=== PATIENT | male | born 1995 | race Caucasian/White ===

== ENCOUNTER 2016-06-03 16:38 | Observation (INO) | payer OTHER ==
[~2016-06-03] VITALS: Ht 188 cm; Wt 94.2 kg
[2016-06-03] MEDS ORDERED: SODIUM CHLORIDE 0.9% 1000ML 1,000 ML IV STA (17:08)
[2016-06-03 17:41] LABS: BASO % 0.6 %; BASO ABS # 0.05 K/uL (0-0.2); COMPLETE YES; EOS % 0.2 %; HEMATOCRIT 46.6 % (42-52); IG% 0.1 %; LYMPH ABS # 2.33 K/uL (1.2-3.4); MEAN CELL VOLUME 82.9 fL (80-100); MEAN CORPUSCULAR HEMOGLOBIN 29.2 pg (25-34); MEAN CORPUSCULAR HGB CONC 35.2 g/dl (32-36); MEAN PLATELET VOLUME 9.9 fL (7.4-10.4); MONO % 11.8 %; NEUT % 59.3 %; PLATELET COUNT 321 K/uL (130-400); RED BLOOD COUNT 5.62 M/uL (4.7-6.1); WHITE BLOOD COUNT 8.31 K/uL (4.8-10.8)
--- NOTE | 2016-06-03 17:42 | DIAGNOSTIC IMAGING REPORT ---
CHEST ONE VIEW PORTABLE CLINICAL HISTORY: Overdose dyspnea COMPARISON STUDY: No previous studies for comparison. FINDINGS: The bones soft tissues and hemidiaphragms are normal. The cardiomediastinal silhouette is normal. The lungs are clear. The pulmonary vasculature is normal. IMPRESSION: Negative chest. Electronically signed by: Javier Mann M.D. 06/03/2016 5:41 PM Dictated Date/Time: 06/03/2016 5:41 PM
[2016-06-03 17:50] LABS: INR 1.2 (0.9-1.1); PROTHROMBIN TIME (PATIENT) 12.7 SECONDS (9.0-12.0)
--- NOTE | 2016-06-03 17:55 | DIAGNOSTIC IMAGING REPORT ---
HEAD CT NONCONTRAST CT DOSE: 741.55 mGycm HISTORY: Mental status change AMS TECHNIQUE: Multiaxial CT images of the head were performed without the use of intravenous contrast. Comparison: None. Findings: The paranasal sinuses and mastoid air cells are clear. The calvarium and skull base are intact. The ventricles and sulci are within normal limits. There is no mass, hematoma, midline shift, or acute infarct. Impression: No acute intracranial abnormality. Electronically signed by: Javier Mann M.D. 06/03/2016 5:53 PM Dictated Date/Time: 06/03/2016 5:52 PM
[2016-06-03 18:02] LABS: ALT/SGPT 30 U/L (12-78); BLOOD UREA NITROGEN 10 mg/dl (7-18); BUN/CREATININE RATIO 10.5 (10-20); C-REACTIVE PROTEIN < 0.29 mg/dl (0-0.29); CALCIUM 9.5 mg/dl (8.5-10.1); CARBON DIOXIDE 25 mmol/L (21-32); CHLORIDE 104 mmol/L (98-107); CREATININE 0.99 mg/dl (0.60-1.40); GLUCOSE 85 mg/dl (70-99); MAGNESIUM 2.5 mg/dl (1.8-2.4); SODIUM 140 mmol/L (136-145)
[2016-06-03 18:09] LABS: ACETAMINOPHEN < 2 ug/ml (10-30)
[2016-06-03 18:11] LABS: ALKALINE PHOSPHATASE 77 U/L (45-117); AST/SGOT 16 U/L (15-37); PHOSPHORUS 3.1 mg/dl (2.5-4.9)
[2016-06-03 18:13] LABS: URINE APPEARANCE CLEAR (CLEAR); URINE BILIRUBIN NEG (NEG); URINE COLOR YELLOW; URINE NITRITE NEG (NEG); URINE SPECIFIC GRAVITY 1.004 (1.000-1.030); UROBILINOGEN NEG (NEG)
[2016-06-03 18:17] LABS: MANUAL MICROSCOPIC REQUIRED? NO; REVIEW REQ? NO
[2016-06-03 18:36] LABS: BENZODIAZEPINE, URINE NEG (NEG); COCAINE,URINE NEG (NEG); PHENCYCLIDINE, URINE NEG (NEG)
[2016-06-03 18:57] LABS: LYME DISEASE AB IGG NEG (NEG); LYME DISEASE AB IGM NEG (NEG)
--- NOTE | 2016-06-03 20:13 | EMERGENCY ROOM VISIT NOTE ---
History First contact with patient: 16:57 Chief Complaint: NEURO SYMPTOMS Stated Complaint: CONFUSSION, STUMBLING, PASSING OUT History of Present Illness The patient is a 21 year old male who presents to the Emergency Room with friends for evaluation of an altered mental status. The friends report that he has been out of it the past few days. He has been slow to respond, takes a long time to eat and is constantly sleeping. Friends report that he found him in the bathroom floor this afternoon, and was slow to wake up. He did have emesis 1. The friend reports that he recently joined the [employer] team, and has classes on Friday and Friday. They are not in full contact at this point. Several friends who are in the room report that they were with him most of the weekend. According to his friends, he had no alcohol consumption or illicit drug use, or no known previous history of the same. At the current time, the patient denies any pain. Review of Systems Review of systems was limited because of altered mental status Past Medical/Surgical History Medical Problems: (1) Altered mental status (2) Medical history unknown Surgical Problems: (1) Surgical history unknown Family History Family history unknown Social History Smoking Status: Never Smoker Alcohol Use: none Drug Use: none Marital Status: single Occupation Status: [employer] student Current/Historical Medications Scheduled Multivitamin (Multivitamin), 1 TAB PO DAILY Allergies Coded Allergies: No Known Allergies (Unverified , 06/03/16) Physical Exam Vital Signs Date Time Temp Pulse Resp B/P Pulse Ox O2 Delivery O2 Flow Rate FiO2 06/03/16 19:30 83 18 151/88 100 Room Air 06/03/16 18:25 77 20 147/85 99 06/03/16 17:35 81 06/03/16 17:21 89 Room Air 06/03/16 16:46 37.1 89 18 122/81 98 Room Air Physical Exam CONSTITUTIONAL: Healthy and well nourished appearing male. He does not appear in any acute distress. The patient is slow to respond to answers. PSYCHIATRIC: Flat affect. He does occasionally smile. HEENT: Normocephalic, atraumatic. Pupils equal, round and reactive. No evidence for epistaxis, hemotympanum, subconjunctival hemorrhage, raccoon's eyes or Stanley sign. NECK: Full active range of motion without discomfort. No JVD or carotid bruits. No nuchal rigidity. RESPIRATORY: Clear to auscultation bilaterally with no wheezing, crackles, rhonchi or stridor. CARDIOVASCULAR: Regular rate and rhythm with no murmurs, rubs or gallops. GASTROINTESTINAL: Bowel sounds present in all quadrants. Abdomen is soft and nontender to palpation. MUSCULOSKELETAL: Full range of motion of all joints without discomfort. INTEGUMENTARY: No rash or other significant dermatologic conditions noted. HEMATOLOGIC: No ecchymosis or petechiae noted. NEUROLOGIC: Cranial nerves II-XII are grossly intact, although the patient has a delayed response when prompted with testing. No focal neurologic deficits appreciated. Medical Decision & Procedures ER Provider Diagnostic Interpretation: My interpretation of an ECG shows a normal sinus rhythm of [address] elevation, T-wave inversion or other conduction abnormalities. CT of the head does not show any intracranial bleed, midline shift or mass effect. Radiologist report is as follows: HEAD CT NONCONTRAST CT DOSE: 741.55 mGycm HISTORY: Mental status change AMS TECHNIQUE: Multiaxial CT images of the head were performed without the use of intravenous contrast. Comparison: None. Findings: The paranasal sinuses and mastoid air cells are clear. The calvarium and skull base are intact. The ventricles and sulci are within normal limits. There is no mass, hematoma, midline shift, or acute infarct. Impression: No acute intracranial abnormality. My interpretation of a portable chest x-ray does not show any pneumothorax, cardiomegaly, widened mediastinum or consolidations. Radiologist report is as follows: CHEST ONE VIEW PORTABLE CLINICAL HISTORY: Overdose dyspnea COMPARISON STUDY: No previous studies for comparison. FINDINGS: The bones soft tissues and hemidiaphragms are normal. The cardiomediastinal silhouette is normal. The lungs are clear. The pulmonary vasculature is normal. IMPRESSION: Negative chest. Laboratory Results 06/03/16 17:24 Red Blood Count 5.62, Mean Corpuscular Volume 82.9, Mean Corpuscular Hemoglobin 29.2, Mean Corpuscular Hemoglobin Concent 35.2, Mean Platelet Volume 9.9, Neutrophils (%) (Auto) 59.3, Lymphocytes (%) (Auto) 28.0, Monocytes (%) (Auto) 11.8, Eosinophils (%) (Auto) 0.2, Basophils (%) (Auto) 0.6, Neutrophils # (Auto ) 4.92, Lymphocytes # (Auto) 2.33, Monocytes # (Auto) 0.98, Eosinophils # (Auto ) 0.02, Basophils # (Auto) 0.05 06/03/16 17:24 Test 06/03/16 17:24 06/03/16 17:40 White Blood Count 8.31 K/uL (4.8-10.8) Red Blood Count 5.62 M/uL (4.7-6.1) Hemoglobin 16.4 g/dL (14.0-18.0) Hematocrit 46.6 % (42-52) Mean Corpuscular Volume 82.9 fL (80-100) Mean Corpuscular Hemoglobin 29.2 pg (25-34) Mean Corpuscular Hemoglobin Concent 35.2 g/dl (32-36) Platelet Count 321 K/uL (130-400) Mean Platelet Volume 9.9 fL (7.4-10.4) Neutrophils (%) (Auto) 59.3 % Lymphocytes (%) (Auto) 28.0 % Monocytes (%) (Auto) 11.8 % Eosinophils (%) (Auto) 0.2 % Basophils (%) (Auto) 0.6 % Neutrophils # (Auto) 4.92 K/uL (1.4-6.5) Lymphocytes # (Auto) 2.33 K/uL (1.2-3.4) Monocytes # (Auto) 0.98 K/uL (0.11-0.59) Eosinophils # (Auto) 0.02 K/uL (0-0.5) Basophils # (Auto) 0.05 K/uL (0-0.2) RDW Standard Deviation 39.8 fL (36.4-46.3) RDW Coefficient of Variation 13.2 % (11.5-14.5) Immature Granulocyte % (Auto) 0.1 % Immature Granulocyte # (Auto) 0.01 K/uL (0.00-0.02) Erythrocyte Sedimentation Rate 10 mm/hr (0-14) Prothrombin Time 12.7 SECONDS (9.0-12.0) Prothromb Time International Ratio 1.2 (0.9-1.1) Activated Partial Thromboplast Time 26.6 SECONDS (21.0-31.0) Partial Thromboplastin Ratio 1.0 Anion Gap 11.0 mmol/L (3-11) Est Creatinine Clear Calc Drug Dose 138.4 ml/min Estimated GFR () 126.5 Estimated GFR (Non- 109.2 BUN/Creatinine Ratio 10.5 (10-20) Osmolality 288 mOsm/kg (280-300) Calcium Level 9.5 mg/dl (8.5-10.1) Phosphorus Level 3.1 mg/dl (2.5-4.9) Magnesium Level 2.5 mg/dl (1.8-2.4) Total Bilirubin 0.8 mg/dl (0.2-1) Direct Bilirubin 0.2 mg/dl (0-0.2) Aspartate Amino Transf (AST/SGOT) 16 U/L (15-37) Alanine Aminotransferase (ALT/SGPT) 30 U/L (12-78) Alkaline Phosphatase 77 U/L (45-117) Total Creatine Kinase 99 U/L (39-308) Troponin I < 0.015 ng/ml (0-0.045) C-Reactive Protein < 0.29 mg/dl (0-0.29) Total Protein 8.7 gm/dl (6.4-8.2) Albumin 4.8 gm/dl (3.4-5.0) Lipase 121 U/L (73-393) Thyroid Stimulating Hormone (TSH) 3.780 uIu/ml (0.300-4.500) Salicylates Level < 1.7 mg/dl (2.8-20) Acetaminophen Level < 2 ug/ml (10-30) Ethyl Alcohol mg/dL < 3.0 mg/dl (0-3) Lyme Disease IgG Antibody NEG (NEG) Lyme Disease IgM Antibody NEG (NEG) Urine Color YELLOW Urine Appearance CLEAR (CLEAR) Urine pH 6.0 (4.5-7.5) Urine Specific [place] 1.004 (1.000-1.030) Urine Protein NEG (NEG) Urine Glucose (UA) NEG (NEG) Urine Ketones NEG (NEG) Urine Occult Blood NEG (NEG) Urine Nitrite NEG (NEG) Urine Bilirubin NEG (NEG) Urine Urobilinogen NEG (NEG) Urine Leukocyte Esterase NEG (NEG) Urine Opiates Screen NEG (NEG) Urine Methadone, Qualitative NEG (NEG) Urine Barbiturates NEG (NEG) Urine Phencyclidine (PCP) Level NEG (NEG) Ur Amphetamine/Methamphetamine NEG (NEG) MDMA (Ecstasy) Screen NEG (NEG) Urine Benzodiazepines Screen NEG (NEG) Urine Cocaine Metabolite NEG (NEG) Urine Marijuana (THC) NEG (NEG) The above labs were reviewed. No gross abnormalities noted. Medications Administered Medications (Trade) Dose Ordered Sig/Robert Route Start Time Stop Time Status Last Admin Dose Admin Sodium Chloride (Nss 1000ml) 1,000 ml @ 999 mls/hr Q1H1M STAT IV 06/03/16 17:08 06/03/16 18:08 DC 06/03/16 17:28 999 MLS/HR ED Course Patient history and physical exam were performed. Nurse's notes were reviewed. Vital signs were reviewed and were normal. The patient does not appear acutely ill or toxic. He does have a delayed response to all questions, but does answer them appropriately. IV access was established, and labs were drawn. ECG and portable chest x-ray were normal. Head CT was also normal. Review of labs shows no leukocytosis, electrolyte abnormality, elevated liver function tests or lipase. Urinalysis is unremarkable, and urine drug screen was also negative. Lyme screen was negative as well. On frequent reassessment, the patient is sleeping. Patient was monitored while in the emergency department with no dysrhythmias noted. The case was also discussed with Dr. Baker, ED attending physician, who suggested hospitalist evaluation. The case was discussed with Dr. Robles, who evaluated the patient. Please see his dictation for further treatment and final disposition. At the time of dictation, an MRI was ordered and pending. Medical Decision Patient presents to the emergency department for an altered mental status for the past 2 days. The only possible history that was elicited from friends is that the patient is in a boxing class. Although a friend reports that it is a no contact class, I question if the patient may have suffered some type of the head injury with the possibility of a concussion. His workup here today is otherwise unremarkable with a normal head CT and labs. Urinalysis and urine drug screen are unremarkable. I also impression a possibility of absence seizures. Impression Primary Impression: Altered mental status Departure Information Referrals No Doctor, Assigned (PCP) Patient Instructions [facility] Problem Qualifiers Primary Impression: Altered mental status Altered mental status type: unspecified Qualified Codes: R41.82 - Altered mental status, unspecified
[2016-06-03] MEDS ORDERED: ONDANSETRON INJ 2 MG/ML 2 ML VIAL IV PRN (20:15)
[2016-06-03] MEDS ORDERED: ACETAMINOPHEN 325 MG TAB PO PRN (20:15)
[2016-06-03] MEDS ORDERED: MULT-506 PO (20:41)
[2016-06-03] MEDS: NSS + 20MEQ KCL 1000ML 1,000 ML IV SCH (21:34)
--- NOTE | 2016-06-03 21:43 | EMERGENCY ROOM VISIT NOTE ---
ED Visit Note First contact with patient: 16:57 Staff note: I have reviewed the Patients chart and have discussed this case with my PA. I generally agree with the ED note and findings.
[2016-06-03] MEDS ORDERED: IV FLUIDS COMPLETED PRN (21:45)
[2016-06-03] MEDS ORDERED: LORAZEPAM 2 MG/ML 1 ML VIAL ONE (22:24)
[2016-06-03] MEDS ORDERED: LORAZEPAM 2 MG/ML 1 ML VIAL IV STA (22:25)
[2016-06-03] MEDS ORDERED: HALOPERIDOL LACTATE 5 MG/ML 1 ML VIAL IM STA (22:41)
[2016-06-03] MEDS ORDERED: LORAZEPAM INJ 1 MG in SYRINGE 0.5 ML IV STA (22:41)
[2016-06-03] MEDS ORDERED: HALOPERIDOL LACTATE 5 MG/ML 1 ML VIAL ONE (22:42)
[2016-06-04] VITALS (7 sets, daily range): BP systolic 116–147; BP diastolic 57–73; PULSE 57–94; TEMP 36.6–37.9; O2SAT 97–98; Ht 188 cm; Wt 94.2 kg
--- NOTE | 2016-06-04 01:57 | History and Physical ---
History & Physical Date & Time of Service: Jun 04, 2016 at 01:44 Chief Complaint: Altered Mental Status Primary Care Physician: [facility] History of Present Illness Source: patient, parent, friend The patient is a 21-year-old male who presents emergency department with friends for assessment regarding altered mental status with a past 48 hours. His friends report that he's been slow to respond, has been taking a long time to eat, as constantly sleeping. They had found him on the bathroom floor this afternoon, and he was slow to wake up. His friends report that he recently joined a [employer] team and reportedly are not in full contact at this point. His friends also reports that he had no alcohol consumption or illicit drug use, and has had no previous history of use. His parents did arrive in the emergency department later on, and reports that he is always been healthy, and has had no similar instances in the past. They report that there is no family history of seizure disorder or any other type of neurologic disorders. Social History Smoking Status: Never Smoker Smokeless Tobacco Use: No Alcohol Use: none Drug Use: none Marital Status: single Occupational Status: [employer] student Multi-Drug Resistant Organisms History of MDRO: No Allergies Coded Allergies: No Known Allergies (Unverified , 06/03/16) Home Medications Scheduled Multivitamin (Multivitamin), 1 TAB PO DAILY Review of Systems The patient's family and friends supplement his review of systems, as he has difficulty doing so. Denies chest pain, palpitations, shortness of breath, cough, lower extremity swelling, vision change, hearing change, sore throat, fevers, chills, sweats, weight change, abdominal pain, pelvic pain, blood in urine or stool, dysuria, urinary frequency or urgency, rash, abnormal bruising or bleeding, imbalance, focal or generalized weakness, numbness or tingling in arms or legs, arthralgias or myalgias, back or neck pain, night sweats, or allergy symptoms. The review of systems is otherwise negative other than for that already noted above, and at least 10 systems have been reviewed. Physical Exam Vital Signs Date Time Temp Pulse Resp B/P Pulse Ox O2 Delivery O2 Flow Rate FiO2 06/04/16 00:05 67 06/03/16 23:20 68 15 121/65 95 Room Air 06/03/16 21:33 67 18 158/87 99 Room Air 06/03/16 20:58 84 06/03/16 19:30 83 18 151/88 100 Room Air 06/03/16 18:25 77 20 147/85 99 06/03/16 17:35 81 06/03/16 17:21 89 Room Air 06/03/16 16:46 37.1 89 18 122/81 98 Room Air The patient is awake, well-developed and adequately nourished, alert and oriented 3, normocephalic and atraumatic, lying in bed and in no acute distress. The patient does because intermittently disoriented and agitated in the emergency department, and then returns to a more oriented but not still especially communicative state. HEENT--PERRL, EOMI, mucous membranes and oropharynx dry. Neck--supple, no JVD or bruits, thyroid normal, trachea midline, no adenopathy. Heart--normal S1 and S2, no extra beats, no murmurs, rubs or gallops. Lungs--clear bilaterally with good air movement, no respiratory distress, no accessory muscle use. Abdomen--normal bowel sounds and soft, nontender and nondistended, no hernias or masses, no organomegaly. Extremities--no cyanosis, clubbing or edema. There are good distal pulses b/l. Dermatologic--normal skin turgor, normal color, warm and dry, no abnormal lymph nodes, no rash. Neurologic--cranial nerves II through XII grossly intact, motor and sensory examination normal. Rheumatologic--normal range of motion, nontender, muscles and joints. Psychiatric--flat affect. Diagnostics Laboratory Results Results Past 24 Hours Test 06/03/16 17:24 06/03/16 17:40 Range/Units White Blood Count 8.31 4.8-10.8 K/uL Red Blood Count 5.62 4.7-6.1 M/uL Hemoglobin 16.4 14.0-18.0 g/dL Hematocrit 46.6 42-52 % Mean Corpuscular Volume 82.9 80-100 fL Mean Corpuscular Hemoglobin 29.2 25-34 pg Mean Corpuscular Hemoglobin Concent 35.2 32-36 g/dl Platelet Count 321 130-400 K/uL Mean Platelet Volume 9.9 7.4-10.4 fL Neutrophils (%) (Auto) 59.3 % Lymphocytes (%) (Auto) 28.0 % Monocytes (%) (Auto) 11.8 % Eosinophils (%) (Auto) 0.2 % Basophils (%) (Auto) 0.6 % Neutrophils # (Auto) 4.92 1.4-6.5 K/uL Lymphocytes # (Auto) 2.33 1.2-3.4 K/uL Monocytes # (Auto) 0.98 0.11-0.59 K/uL Eosinophils # (Auto) 0.02 0-0.5 K/uL Basophils # (Auto) 0.05 0-0.2 K/uL RDW Standard Deviation 39.8 36.4-46.3 fL RDW Coefficient of Variation 13.2 11.5-14.5 % Immature Granulocyte % (Auto) 0.1 % Immature Granulocyte # (Auto) 0.01 0.00-0.02 K/uL Erythrocyte Sedimentation Rate 10 0-14 mm/hr Prothrombin Time 12.7 9.0-12.0 SECONDS Prothromb Time International Ratio 1.2 0.9-1.1 Activated Partial Thromboplast Time 26.6 21.0-31.0 SECONDS Partial Thromboplastin Ratio 1.0 Sodium Level 140 136-145 mmol/L Potassium Level 4.0 3.5-5.1 mmol/L Chloride Level 104 98-107 mmol/L Carbon Dioxide Level 25 21-32 mmol/L Anion Gap 11.0 3-11 mmol/L Blood Urea Nitrogen 10 7-18 mg/dl Creatinine 0.99 0.60-1.40 mg/dl Est Creatinine Clear Calc Drug Dose 138.4 ml/min Estimated GFR () 126.5 Estimated GFR (Non- 109.2 BUN/Creatinine Ratio 10.5 10-20 Random Glucose 85 70-99 mg/dl Osmolality 288 280-300 mOsm/kg Calcium Level 9.5 8.5-10.1 mg/dl Phosphorus Level 3.1 2.5-4.9 mg/dl Magnesium Level 2.5 1.8-2.4 mg/dl Total Bilirubin 0.8 0.2-1 mg/dl Direct Bilirubin 0.2 0-0.2 mg/dl Aspartate Amino Transf (AST/SGOT) 16 15-37 U/L Alanine Aminotransferase (ALT/SGPT) 30 12-78 U/L Alkaline Phosphatase 77 45-117 U/L Total Creatine Kinase 99 39-308 U/L Troponin I < 0.015 0-0.045 ng/ml C-Reactive Protein < 0.29 0-0.29 mg/dl Total Protein 8.7 6.4-8.2 gm/dl Albumin 4.8 3.4-5.0 gm/dl Lipase 121 73-393 U/L Thyroid Stimulating Hormone (TSH) 3.780 0.300-4.500 uIu/ml Salicylates Level < 1.7 2.8-20 mg/dl Acetaminophen Level < 2 10-30 ug/ml Ethyl Alcohol mg/dL < 3.0 0-3 mg/dl Lyme Disease IgG Antibody NEG NEG Lyme Disease IgM Antibody NEG NEG Urine Color YELLOW Urine Appearance CLEAR CLEAR Urine pH 6.0 4.5-7.5 Urine Specific [place] 1.004 1.000-1.030 Urine Protein NEG NEG Urine Glucose (UA) NEG NEG Urine Ketones NEG NEG Urine Occult Blood NEG NEG Urine Nitrite NEG NEG Urine Bilirubin NEG NEG Urine Urobilinogen NEG NEG Urine Leukocyte Esterase NEG NEG Urine Opiates Screen NEG NEG Urine Methadone, Qualitative NEG NEG Urine Barbiturates NEG NEG Urine Phencyclidine (PCP) Level NEG NEG Ur Amphetamine/Methamphetamine NEG NEG MDMA (Ecstasy) Screen NEG NEG Urine Benzodiazepines Screen NEG NEG Urine Cocaine Metabolite NEG NEG Urine Marijuana (THC) NEG NEG Diagnostic Radiology Patient Name: DAVID THOMAS Unit Number: [id number] Dictated: 06/03/161751 Transcribed: 06/03/161751 MS Printed Date/Time: [~ rep prt dt]/[~ rep prt tm] [~ rep ct labl] - [~ rep ct ivnm] [facility] [place] [address] Dictated: 06/03/161751 Transcribed: 06/03/161751 MS Printed Date/Time: [~ rep prt dt]/[~ rep prt tm] [~ rep ct labl] - [~ rep ct ivnm] HEAD CT NONCONTRAST CT DOSE: 741.55 mGycm HISTORY: Mental status change AMS TECHNIQUE: Multiaxial CT images of the head were performed without the use of intravenous contrast. Comparison: None. Findings: The paranasal sinuses and mastoid air cells are clear. The calvarium and skull base are intact. The ventricles and sulci are within normal limits. There is no mass, hematoma, midline shift, or acute infarct. Impression: No acute intracranial abnormality. Electronically signed by: Javier Mann M.D. 06/03/2016 5:53 PM Dictated Date/Time: 06/03/2016 5:52 PM The status of this report is Signed. Draft = Not yet reviewed or approved by Radiologist. Signed = Reviewed and approved by Radiologist. <AttendingPhy></AttendingPhy> <FamilyPhy>No Doctor, Assigned</FamilyPhy> < PrimaryPhy>No Doctor, Assigned</PrimaryPhy> <UnitNumber>[id number]</UnitNumber> <VisitNumber>[id number]</VisitNumber> <PatientName>DAVID THOMAS</ PatientName> <DateOfBirth>1995</DateOfBirth> <Location>[facility]</Location> < ServiceDate>06/03/16</ServiceDate> <MNE>ESINDI</MNE> <OrderingPhy>Wayne Jerry</OrderingPhy> <OrderingPhyMNE>f rep ord dr stephens</OrderingPhyMNE> < DictatingPhyMNE>f rep dict dr stephens</DictatingPhyMNE> <CCListMNE>f rep ct kat</ CCListMNE> <AdmittingPhyMNE>f pt admit dr stephens</AdmittingPhyMNE> <AttendingPhyMNE >f pt attend dr stephens</AttendingPhyMNE> <ConsultingPhyMNE>f pt consult dr stephens</ConsultingPhyMNE> <FamilyPhyMNE>f pt fam dr stephens</FamilyPhyMNE> <OtherPhyMNE>f pt other dr stephens</OtherPhyMNE> < PrimaryPhyMNE>f pt prim care dr stephens</PrimaryPhyMNE> <ReferringPhyMNE>f pt referring dr stephens</ReferringPhyMNE> Patient Name: DAVID THOMAS Unit Number: [id number] Dictated: 06/03/161740 Transcribed: 06/03/161740 MS Printed Date/Time: [~ rep prt dt]/[~ rep prt tm] [~ rep ct labl] - [~ rep ct ivnm] [facility] Radiology Department [place], [place] [id number] Dictated: 06/03/161740 Transcribed: 06/03/161740 MS Printed Date/Time: [~ rep prt dt]/[~ rep prt tm] [~ rep ct labl] - [~ rep ct ivnm] [~ rep ct add3]] CHEST ONE VIEW PORTABLE CLINICAL HISTORY: Overdose dyspnea COMPARISON STUDY: No previous studies for comparison. FINDINGS: The bones soft tissues and hemidiaphragms are normal. The cardiomediastinal silhouette is normal. The lungs are clear. The pulmonary vasculature is normal. IMPRESSION: Negative chest. Electronically signed by: Javier Mann M.D. 06/03/2016 5:41 PM Dictated Date/Time: 06/03/2016 5:41 PM The status of this report is Signed. Draft = Not yet reviewed or approved by Radiologist. Signed = Reviewed and approved by Radiologist. <AttendingPhy></AttendingPhy> <FamilyPhy>No Doctor, Assigned</FamilyPhy> < PrimaryPhy>No Doctor, Assigned</PrimaryPhy> <UnitNumber>[id number]</UnitNumber> <VisitNumber>[id number]</VisitNumber> <PatientName>DAVID THOMAS</ PatientName> <DateOfBirth>1995</DateOfBirth> <Location>[facility]</Location> < ServiceDate>06/03/16</ServiceDate> <MNE>ESINDI</MNE> <OrderingPhy>Wayne Jerry</OrderingPhy> <OrderingPhyMNE>f rep ord dr stephens</OrderingPhyMNE> < DictatingPhyMNE>f rep dict dr stephens</DictatingPhyMNE> <CCListMNE>f rep ct mne</ CCListMNE> <AdmittingPhyMNE>f pt admit dr stephens</AdmittingPhyMNE> <AttendingPhyMNE >f pt attend dr stephens</AttendingPhyMNE> <ConsultingPhyMNE>f pt consult dr stephens</ConsultingPhyMNE> <FamilyPhyMNE>f pt fam dr stephens</FamilyPhyMNE> <OtherPhyMNE>f pt other dr stephens</OtherPhyMNE> < PrimaryPhyMNE>f pt prim care dr stephens</PrimaryPhyMNE> <ReferringPhyMNE>f pt referring dr stephens</ReferringPhyMNE> EKG EKG shows normal sinus rhythm at 85 bpm, with generalized low level ST elevations, with differential including early repolarization, pericarditis or injury. Impression Assessment and Plan Altered mental status--the patient be admitted to the telemetry unit, for frequent neuro checks. His CT of the head was negative, and metabolic workup has been negative. We did attempt to get an MRI of the brain tonight in the emergency department, however, the patient became too agitated and had to be sedated,and this may be reattempted in the morning. I've also ordered an EEG for the morning and a neurology consult. His urine drug screen is negative, Lyme testing is negative and sedimentation rate is normal.. His EKG is most likely that of early repolarization, however, to rule out possibility of pericarditis , a 2-D echocardiogram with Dopplers will be ordered. His cardiac enzymes are negative. His clinical presentation at this time is most consistent with that of a concussion, and would go along with his recent new activity of boxing, although it is reported that he has not had any direct contact to this point in time. He has not had any seizure type activity observed while in emergency department, but EEG will be ordered as noted above. Level of Care Telemetry Advanced Directives Existing Advance Directive: No Existing Living Will: No Existing Power of Mapping Technician: No Resuscitation Status FULL RESUSCITATION VTE Prophylaxis VTE Risk Assessment Done? Y/N: Yes Risk Level: Low Given or contraindicated: SCD's Social Service Consult None Apply
[2016-06-04] MEDS ORDERED: INFLUENZA VIRUS QUAD VACCINE 0.5 ML SYR IM. ONE (08:30)
[2016-06-04] MEDS ORDERED: LORAZEPAM 2 MG/ML 1 ML VIAL IV PRN (08:30)
[2016-06-04] MEDS ORDERED: INFLUENZA ADMINISTRATION CHARGE ONE (08:30)
--- NOTE | 2016-06-04 10:39 | Neurology Consultation ---
Neurology Consultation Date of Consultation: Jun 04, 2016. Attending Physician: Arnulfo Robles M.D. Primary Care Physician: [facility] Reason for Consultation: Consultation for change in mental status History of Present Illness Source: patient, parent, hospital records This is a 21-year-old male who presents to the emergency room and reported altered mental status. Mother reports that he had called her on stating that he wasn't feeling well. He had started boxing training, was doing a little cut carbohydrate diet, and may have been dehydrated. She instructed him to get Gatorade which she did and reportedly felt better on Friday. Parents and roommates both adamantly report that even so he is training for boxing, they are not doing any contact at this time. Parents and patient deny any recent episodes of head injuries or loss of consciousness. Patient denies any recent illnesses or fevers. Mother reports that he had of slight headache this morning, but currently the patient denies any headaches or problems with headaches. Per chart review roommates reportedly noted that he had been off mentally for the last 2 days before presentation. He had been sleeping more than normal. They found him on the floor the bathroom and he was slow to respond. There has not been any seizure-like episodes currently or in the past. No tongue biting or urinary incontinence. No unexplained injuries. Parents deny any history of psychiatric illness including depression and anxiety.Family history of psychiatric illness beyond anxiety. Patient denies any drug use or supplement use. Denies any recent alcohol. Patient denies any feelings of depression or anxiety. Patient denies any hallucinations. Denies any fevers. Patient has never had any episodes like this in the past. 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 Nursing staff this morning reports that he has been agitated and not cooperating with testing such as getting an MRI. Mother reports that he pulled himself out of the MRI and was laughing in an usual manner. CT of the head report and images reviewed by myself and was unremarkable Labs were reviewed. Drug screen was negative. Unremarkable CBC, complete metabolic panel, CRP, ESR, Lyme, TSH, magnesium and phos. I ordered an ammonia level this morning which was also within normal limits. Past Medical/Surgical History Denies any significant medical problems Family History Denies any history for psychiatric disease. Mother reports a relative with MS. No other neurological diseases reported. 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 He has started boxing training but there is no contact. Denies any tobacco, alcohol, or illegal drug use. Smokeless Tobacco Use: No Alcohol Use: none Drug Use: none Marital Status: single Occupation Status: [employer] student Allergies Coded Allergies: No Known Allergies (Unverified , 06/03/16) Current Inpatient Medications Current Inpatient Medications Medications (Trade) Dose Ordered Sig/Robert Route Start Time Stop Time Status Last Admin Dose Admin Potassium Chloride/Sodium Chloride (Nss + 20meq KCl 1000ml) 1,000 ml @ 100 mls/hr Q10H IV 06/03/16 21:30 07/03/16 21:29 06/03/16 21:34 100 MLS/HR Acetaminophen (Tylenol Tab) 650 mg Q4H PRN PO 06/03/16 20:15 07/03/16 20:14 Ondansetron HCl (Zofran Inj) 4 mg Q6H PRN IV 06/03/16 20:15 07/03/16 20:14 Miscellaneous (Iv Fluids Completed) 1 ea PRN PRN N/A 06/03/16 21:45 06/03/17 21:44 Lorazepam (Ativan Inj) 0.5 mg Q4H PRN IV 06/04/16 08:30 07/04/16 08:29 Review of Systems Review of systems Limited due to mental status but negative except for the above reported in history of present illness Physical Exam Vital Signs (Past 24 Hrs): Date Time Temp Pulse Resp B/P Pulse Ox O2 Delivery O2 Flow Rate FiO2 06/04/16 08:09 68 06/04/16 08:00 Room Air 06/04/16 07:40 36.6 94 18 147/73 97 Room Air 06/04/16 04:09 65 06/04/16 03:25 36.6 57 18 121/73 Room Air 06/04/16 00:05 67 06/03/16 23:20 68 15 121/65 95 Room Air 06/03/16 21:33 67 18 158/87 99 Room Air 06/03/16 20:58 84 06/03/16 19:30 83 18 151/88 100 Room Air 06/03/16 18:25 77 20 147/85 99 06/03/16 17:35 81 06/03/16 17:21 89 Room Air 06/03/16 16:46 37.1 89 18 122/81 98 Room Air Gen.: Patient is lethargic/groggy sleeping in bed, in no acute distress. HEENT: Normocephalic /atraumatic, no scleral icterus Heart: Regular rate and rhythm Extremities: No gross deformities or rashes noted Neurological examination: Mental status: Patient is lethargic but oriented x3. Attention and concentration is decreased. Patient is able to give his own history but difficult to obtain. No active hallucinations Speech is fluent without any dysarthria or aphasia noted Cranial nerve: Funduscopic examination was unremarkable. No papilledema. Pupils equally round and reactive to light. Extraocular muscles intact without nystagmus. No facial asymmetry noted. Facial sensation intact. Tongue is midline. Good palatal elevation. Good shoulder shrug bilaterally. Hearing grossly intact to voice. Strength: 5/5 both proximal and distally in all extremities. There is no arm drift. Tone is normal. Sensation: Grossly intact to light touch in all extremities. Deep tendon reflexes: +1 in bilateral biceps, brachioradialis and patellar. Toes were downgoing to plantar stimulation Coordination: Patient had good finger to nose without dysmetria Gait was stable and within normal limits. No ataxia noted. Laboratory Results Past 24 Hours: 06/03/16 17:24 Red Blood Count 5.62, Mean Corpuscular Volume 82.9, Mean Corpuscular Hemoglobin 29.2, Mean Corpuscular Hemoglobin Concent 35.2, Mean Platelet Volume 9.9, Neutrophils (%) (Auto) 59.3, Lymphocytes (%) (Auto) 28.0, Monocytes (%) (Auto) 11.8, Eosinophils (%) (Auto) 0.2, Basophils (%) (Auto) 0.6, Neutrophils # (Auto ) 4.92, Lymphocytes # (Auto) 2.33, Monocytes # (Auto) 0.98, Eosinophils # (Auto ) 0.02, Basophils # (Auto) 0.05 06/03/16 17:24 Test 06/03/16 17:24 06/03/16 17:40 06/04/16 08:50 White Blood Count 8.31 K/uL (4.8-10.8) Red Blood Count 5.62 M/uL (4.7-6.1) Hemoglobin 16.4 g/dL (14.0-18.0) Hematocrit 46.6 % (42-52) Mean Corpuscular Volume 82.9 fL (80-100) Mean Corpuscular Hemoglobin 29.2 pg (25-34) Mean Corpuscular Hemoglobin Concent 35.2 g/dl (32-36) Platelet Count 321 K/uL (130-400) Mean Platelet Volume 9.9 fL (7.4-10.4) Neutrophils (%) (Auto) 59.3 % Lymphocytes (%) (Auto) 28.0 % Monocytes (%) (Auto) 11.8 % Eosinophils (%) (Auto) 0.2 % Basophils (%) (Auto) 0.6 % Neutrophils # (Auto) 4.92 K/uL (1.4-6.5) Lymphocytes # (Auto) 2.33 K/uL (1.2-3.4) Monocytes # (Auto) 0.98 K/uL (0.11-0.59) Eosinophils # (Auto) 0.02 K/uL (0-0.5) Basophils # (Auto) 0.05 K/uL (0-0.2) RDW Standard Deviation 39.8 fL (36.4-46.3) RDW Coefficient of Variation 13.2 % (11.5-14.5) Immature Granulocyte % (Auto) 0.1 % Immature Granulocyte # (Auto) 0.01 K/uL (0.00-0.02) Erythrocyte Sedimentation Rate 10 mm/hr (0-14) Prothrombin Time 12.7 SECONDS (9.0-12.0) Prothromb Time International Ratio 1.2 (0.9-1.1) Activated Partial Thromboplast Time 26.6 SECONDS (21.0-31.0) Partial Thromboplastin Ratio 1.0 Anion Gap 11.0 mmol/L (3-11) Est Creatinine Clear Calc Drug Dose 138.4 ml/min Estimated GFR () 126.5 Estimated GFR (Non- 109.2 BUN/Creatinine Ratio 10.5 (10-20) Osmolality 288 mOsm/kg (280-300) Calcium Level 9.5 mg/dl (8.5-10.1) Phosphorus Level 3.1 mg/dl (2.5-4.9) Magnesium Level 2.5 mg/dl (1.8-2.4) Total Bilirubin 0.8 mg/dl (0.2-1) Direct Bilirubin 0.2 mg/dl (0-0.2) Aspartate Amino Transf (AST/SGOT) 16 U/L (15-37) Alanine Aminotransferase (ALT/SGPT) 30 U/L (12-78) Alkaline Phosphatase 77 U/L (45-117) Total Creatine Kinase 99 U/L (39-308) Troponin I < 0.015 ng/ml (0-0.045) C-Reactive Protein < 0.29 mg/dl (0-0.29) Total Protein 8.7 gm/dl (6.4-8.2) Albumin 4.8 gm/dl (3.4-5.0) Lipase 121 U/L (73-393) Thyroid Stimulating Hormone (TSH) 3.780 uIu/ml (0.300-4.500) Salicylates Level < 1.7 mg/dl (2.8-20) Acetaminophen Level < 2 ug/ml (10-30) Ethyl Alcohol mg/dL < 3.0 mg/dl (0-3) Lyme Disease IgG Antibody NEG (NEG) Lyme Disease IgM Antibody NEG (NEG) Urine Color YELLOW Urine Appearance CLEAR (CLEAR) Urine pH 6.0 (4.5-7.5) Urine Specific [place] 1.004 (1.000-1.030) Urine Protein NEG (NEG) Urine Glucose (UA) NEG (NEG) Urine Ketones NEG (NEG) Urine Occult Blood NEG (NEG) Urine Nitrite NEG (NEG) Urine Bilirubin NEG (NEG) Urine Urobilinogen NEG (NEG) Urine Leukocyte Esterase NEG (NEG) Urine Opiates Screen NEG (NEG) Urine Methadone, Qualitative NEG (NEG) Urine Barbiturates NEG (NEG) Urine Phencyclidine (PCP) Level NEG (NEG) Ur Amphetamine/Methamphetamine NEG (NEG) MDMA (Ecstasy) Screen NEG (NEG) Urine Benzodiazepines Screen NEG (NEG) Urine Cocaine Metabolite NEG (NEG) Urine Marijuana (THC) NEG (NEG) Ammonia 13.0 umol/L (11-32) Imaging As noted above in history of present illness Impression This is a 21-year-old male with a change in mental status. Described as being lethargic, tired, and agitated. There is no history of concussion or head injuries. No episodes suggestive of seizure or stroke. Drug screen is negative and patient denies any drug use. Patient has reportedly been under increased stress and has changed his diet to a low carb diet. Denies any illness or sick symptoms. Overall patient has a nonfocal neurological examination and it is not clear if there is an underlying neurological condition that would explain his change in mental status. Differential diagnosis could include seizure or stroke, but I think this is a low probability. Metabolic derangements as a cause for acute encephalopathy have not been found. Differential diagnosis should also include infectious etiologies including encephalitis or limbic encephalitis, although the patient has not exhibited any fevers or other sick symptoms. Plan Patient needs to get an MRI of his brain with and without contrast to rule out structural etiologies, inflammation, or infection. If agitation continues to be an issue, may need to be done under sedation with anesthesia. We'll attempt to get an EEG today to evaluate for possible seizure etiology. My suspicion for seizure is low. (Tech did attempt to do earlier this morning, but the patient was reportedly agitated at the time) If any concern, signs or symptoms for infection, would do an infectious workup including blood cultures and consideration for lumbar puncture. No additional neurological recommendations at this time. I will follow-up MRI and EEG once done. If there is any concerns or questions, feel free to call/ page me
[2016-06-04] MEDS: NSS + 20MEQ KCL 1000ML 1,000 ML IV SCH ×2 (13:00→17:59)
--- NOTE | 2016-06-04 13:16 | EEG Procedure Note ---
EEG Procedure Note Date of Service Jun 04, 2016. Start / End Times Start Time: 10:38 AM End Time: 10:58 AM Referring Physician Arnulfo Hughes History This is a 21-year-old male who presents with acute encephalopathy. EEG for further evaluation of possible seizure etiology. Home Medication List Scheduled Multivitamin (Multivitamin), 1 TAB PO DAILY Inpatient Medication List Current Inpatient Medications Medications (Trade) Dose Ordered Sig/Robert Route Start Time Stop Time Status Last Admin Dose Admin Potassium Chloride/Sodium Chloride (Nss + 20meq KCl 1000ml) 1,000 ml @ 100 mls/hr Q10H IV 06/03/16 21:30 07/03/16 21:29 06/03/16 21:34 100 MLS/HR Acetaminophen (Tylenol Tab) 650 mg Q4H PRN PO 06/03/16 20:15 07/03/16 20:14 Ondansetron HCl (Zofran Inj) 4 mg Q6H PRN IV 06/03/16 20:15 07/03/16 20:14 Miscellaneous (Iv Fluids Completed) 1 ea PRN PRN N/A 06/03/16 21:45 06/03/17 21:44 Lorazepam (Ativan Inj) 0.5 mg Q4H PRN IV 06/04/16 08:30 07/04/16 08:29 06/04/16 13:08 0.5 MG Description This is a 21 electrode EEG with a single channel dedicated to limited EKG. The electrodes were placed in accordance with the International 10-20 system. Rare to occasional intermittent movement artifact noted. At the start of the recording the patient was in an awake state. Background was well organized and composed of symmetric mixed alpha and beta frequencies. There was a symmetric well-formed moderate amplitude 10-11 Hz posterior dominant rhythm that was reactive to eye opening and closure. Hyperventilation was not done due to mental status. Intermittent photic stimulation at various frequencies produced no abnormalities. Sleep was indicated by vertex waves and symmetric sleep spindles. Interpretation This is a normal awake and asleep routine EEG. There was no electrographic seizures or epileptiform discharges. Clinical Correlation A normal EEG does not rule out epilepsy if there is a strong clinical suspicion.
--- NOTE | 2016-06-04 14:03 | DIAGNOSTIC IMAGING REPORT ---
MRI OF THE BRAIN WITHOUT AND WITH IV CONTRAST CLINICAL HISTORY: Altered mental status. COMPARISON STUDY: Head CT dated 06/03/2016 TECHNIQUE: MRI of the brain was performed from the vertex to the skull base utilizing various T1 and T2 weighted sequences. Following the IV administration of 9.5 mL of Gadavist contrast, additional enhanced images were obtained. FINDINGS: Sagittal T1, axial diffusion, proton density and T2 weighted axial, coronal FLAIR, and pre and post axial T1-weighted images were acquired. These were supplemented with post gadolinium coronal T1 weighted images. No intra or extra-axial mass lesions are visualized. Axial diffusion-weighted images reveal no evidence of acute or subacute infarction. There is no evidence of ventricular dilatation. Proton density T2-weighted and FLAIR images reveal no significant intraparenchymal signal abnormalities. There are no abnormal flow voids. There is no evidence of pathologic enhancement. IMPRESSION: Normal study. Electronically signed by: Antony Waite M.D. 06/04/2016 2:02 PM Dictated Date/Time: 06/04/2016 1:59 PM
--- NOTE | 2016-06-04 15:35 | Psychiatric Progress Notes ---
Psychiatric Progress Note Date of Service Jun 04, 2016. Notes consult requested to help eval patient who was found poorly responsive on the bathroom floor by roommates. Attempted to see patient at this time, but had just received IV ativan and was poorly responsive and unable to participate in interview. Will return in the AM.
--- NOTE | 2016-06-04 19:48 | Progress Note ---
Subjective Subjective Date of Service: Jun 04, 2016. Pt evaluation today including: conversation w/ patient, conversation w/ family , physical exam, chart review, review of studies, conversation w/ ux consultant ( dave) Notes: agitated this am, lethargic Review of Systems Constitutional: No fever ENT: No hearing loss Cardiac: No chest pain Abdomen: No pain Male : No dysuria Neurologic: No memory loss Psychiatric: + problem reported (lethargy) Endo: No fatigue Skin: No rash Physical Exam Vital Signs Vital Signs Past 24 Hours: Date Time Temp Pulse Resp B/P Pulse Ox O2 Delivery O2 Flow Rate FiO2 06/04/16 16:00 98 Room Air 06/04/16 15:59 37.9 70 18 116/57 98 Room Air 06/04/16 15:18 80 18 129/66 98 06/04/16 12:47 37.1 79 16 129/66 98 Room Air 06/04/16 12:00 Room Air 06/04/16 08:09 68 06/04/16 08:00 Room Air 06/04/16 07:40 36.6 94 18 147/73 97 Room Air 06/04/16 04:09 65 06/04/16 03:25 36.6 57 18 121/73 Room Air 06/04/16 00:05 67 06/03/16 23:20 68 15 121/65 95 Room Air 06/03/16 21:33 67 18 158/87 99 Room Air 06/03/16 20:58 84 Physical Exam: General Appearance: WD/WN, no apparent distress Eyes: bilateral eyes normal inspection ENT: hearing grossly normal Neck: supple Respiratory/Chest: chest non-tender Cardiovascular: regular rate, rhythm Abdomen: normal bowel sounds Extremities: normal range of motion, normal inspection Neurologic/Psychiatric: no motor/sensory deficits, alert, oriented x 3, + pertinent finding (slow to response) Skin: normal color Medications Medications: Current Inpatient Medications Medications (Trade) Dose Ordered Sig/Robert Route Start Time Stop Time Status Last Admin Dose Admin Potassium Chloride/Sodium Chloride (Nss + 20meq KCl 1000ml) 1,000 ml @ 100 mls/hr Q10H IV 06/03/16 21:30 07/03/16 21:29 06/04/16 17:59 100 MLS/HR Acetaminophen (Tylenol Tab) 650 mg Q4H PRN PO 06/03/16 20:15 07/03/16 20:14 Ondansetron HCl (Zofran Inj) 4 mg Q6H PRN IV 06/03/16 20:15 07/03/16 20:14 Miscellaneous (Iv Fluids Completed) 1 ea PRN PRN N/A 06/03/16 21:45 06/03/17 21:44 Lorazepam (Ativan Inj) 0.5 mg Q4H PRN IV 06/04/16 08:30 07/04/16 08:29 06/04/16 13:08 0.5 MG Laboratory Data Labs: Last 24 Hours Test 06/04/16 08:50 Ammonia 13.0 umol/L Assessment and Plan A 21 yo male comes with Altered mental status cont telemetry unit, frequent neuro checks. MRI/CT of the head was negative, and metabolic workup has been negative. EEG unremarkable appreciated neurology consult. His urine drug screen is negative, Lyme testing is negative and sedimentation rate is normal.. 2-D echocardiogram with Dopplers pending His cardiac enzymes are negative. His clinical presentation at this time is most consistent with that of a concussion, and would go along with his recent new activity of boxing, although it is reported that he has not had any direct contact to this point in time. He has not had any seizure type activity observed while in emergency department will do endocrine w/u r/o adrenal insufficiency, low testosterone s-me, check cortisol am, aldosterone, renin and free testo level
[2016-06-05] MEDS: NSS + 20MEQ KCL 1000ML 1,000 ML IV SCH (03:15)
[2016-06-05 04:12] VITALS: BP 132/74; PULSE 78; TEMP 36.8; O2SAT 99
[2016-06-05 07:35] VITALS: BP 146/81; PULSE 72; TEMP 36.8; O2SAT 100
[2016-06-05 08:51] LABS: BASO % 0.5 %; BASO ABS # 0.03 K/uL (0-0.2); COMPLETE YES; EOS % 1.5 %; HEMATOCRIT 43.4 % (42-52); IG% 0.2 %; LYMPH % 33.4 %; LYMPH ABS # 2.22 K/uL (1.2-3.4); MEAN CELL VOLUME 85.8 fL (80-100); MEAN CORPUSCULAR HEMOGLOBIN 29.6 pg (25-34); MEAN CORPUSCULAR HGB CONC 34.6 g/dl (32-36); MEAN PLATELET VOLUME 10.6 fL (7.4-10.4); MONO % 8.9 %; NEUT % 55.5 %; PLATELET COUNT 241 K/uL (130-400); RED BLOOD COUNT 5.06 M/uL (4.7-6.1); WHITE BLOOD COUNT 6.65 K/uL (4.8-10.8)
[2016-06-05 09:15] LABS: BUN/CREATININE RATIO 12.9 (10-20); CALCIUM 8.9 mg/dl (8.5-10.1); CREATININE 0.96 mg/dl (0.60-1.40); MAGNESIUM 2.3 mg/dl (1.8-2.4); POTASSIUM 3.8 mmol/L (3.5-5.1)
[2016-06-05 09:21] LABS: ALB/GLOB RATIO 1.2 (0.9-2)
--- NOTE | 2016-06-05 10:26 | Discharge Instructions ---
Discharge Instructions Admission Reason for Admission: Altered Mental Status Discharge Discharge Diagnosis / Problem: [employer] overuse, dehydration Discharge Goals Goal(s): Increase independence, Improve disease control Activity Recommendations Activity Limitations: per Instructions/Follow-up section Lifting Limitations: gradually increase as tolerated . Instructions / Follow-Up Instructions / Follow-Up may attend school on june 13 drink plenty of fluids Current Hospital Diet Patient's current hospital diet: Regular Diet Discharge Diet Recommended Diet: Regular Diet Pending Studies Studies pending at discharge: yes List of pending studies: cortisol aldosterone renin Medical Emergencies . Who to Call and When: Medical Emergencies: If at any time you feel your situation is an emergency, please call 911 immediately. . Non-Emergent Contact Non-Emergency issues call your: Primary Care Provider Call Non-Emergent contact if: you have any medication questions . Past History Medical & Surgical History: (1) Overuse of medication (2) Altered mental status . "Provider Documentation" section prepared by Efra Martínez. VTE Core Measure Inpt VTE Proph given/why not?: SCD's
--- NOTE | 2016-06-05 10:30 | Discharge Summary ---
Discharge Summary Date of Service Jun 05, 2016. Discharge Summary Admission Date: Jun 03, 2016 at 20:10 Discharge Date: Jun 05, 2016 Discharge Disposition: Home Principal Diagnosis: medication overuse Problems/Secondary Diagnoses: change of mental status Consultations: neuro, psych Medication Reconciliation Continued Medications: Multivitamin (Multivitamin) Tab 1 TAB PO DAILY, TAB Discharge Exam Review of Systems: Constitutional: No chills ENT: No hearing loss, No unusual epistaxis Respiratory: No sputum Abdomen: No nausea Musculoskeletal: No joint pain Genitourinary - Male: No hematuria Psychiatric: No depression symptoms Endocrine: No fatigue Physical Exam: General Appearance: WD/WN, no apparent distress Eyes: normal inspection, EOMI ENT: hearing grossly normal Neck: supple Respiratory/Chest: chest non-tender, no respiratory distress Cardiovascular: no edema, no JVD Abdomen / GI: non tender, no pulsatile mass Extremities: no calf tenderness, normal range of motion Neurologic/Psychiatric: alert Skin: warm/dry Hospital Course A 21 yo male comes with Altered mental status sec to [employer] overuse, dehydration. improved with IVF cont oral hydration may return to school on june 13 MRI/CT of the head was negative, and metabolic workup has been negative. EEG unremarkable appreciated neurology consult. His urine drug screen is negative, Lyme testing is negative and sedimentation rate is normal.. 2-D echocardiogram with Dopplers pending His cardiac enzymes are negative. H He has not had any seizure type activity observed while in emergency department checking testosterone s-me, cortisol am, aldosterone, renin- pending on d/c avoid sleeping aides, avoid strenuous physical activity. start gradually in moderation f/u PCP if needed Total Time Spent: Greater than 30 minutes This includes examination of the patient, discharge planning, medication reconciliation, and communication with other providers. Discharge Instructions Please refer to the electronic Patient Visit Report (Discharge Instructions) for additional information.
[2016-06-05 11:46] VITALS: BP 143/77; PULSE 69; TEMP 36.8; O2SAT 96
[2016-06-05 11:50] VITALS: BP 143/77; PULSE 69; TEMP 36.8; O2SAT 96
== END 2016-06-05 12:15 | disposition home or self-care (01) ==
LOC: ENRESERVTM → ENRESERVDT → C.EDB 16:40 → C.EDINP 20:10 → C.2E 06-04 15:29
PROVIDERS: ADMIT Hospitalist; ATTEND Hospitalist
DX: T48.3X1A Poisoning by antitussives, accidental (unintentional), initial encounter (principal); R41.82 Altered mental status, unspecified; E86.0 Dehydration

== ENCOUNTER 2016-06-29 13:42 | Inpatient (IN) | payer OTHER ==
[~2016-06-29] VITALS: Ht 188 cm; Wt 96.7 kg
[~2016-06-29 13:42] MED LIST: MULT-506 PO
[2016-06-29 13:51] VITALS: O2SAT 98
[2016-06-29 14:42] LABS: MANUAL MICROSCOPIC REQUIRED? NO; URINE APPEARANCE CLEAR (CLEAR); URINE BILIRUBIN NEG (NEG); URINE COLOR YELLOW; URINE NITRITE NEG (NEG); URINE PH 6.5 (4.5-7.5); URINE SPECIFIC GRAVITY <= 1.005 (1.000-1.030); UROBILINOGEN NEG (NEG)
[2016-06-29 14:46] LABS: REVIEW REQ? NO
--- NOTE | 2016-06-29 15:01 | EMERGENCY ROOM VISIT NOTE ---
History Report prepared by Ronn: Jeannette Spirnger Under the Supervision of: Dr. Awa Ontiveros D.O. First contact with patient: 13:59 Chief Complaint: MENTAL HEALTH EVALUATION Stated Complaint: CONFUSION History of Present Illness The patient is a 21 year old male who presents to the Emergency Room with complaints of a sudden mental health evaluation that was noticed earlier today. The patient came to the ED via ambulance from home. Per the psych high risk case manager, the patient lives with several roommates, but none of them are staying there because they are scared of him. One of the patient's roommates went to the apartment today to get stuff and when he got there the patient was there. The patient put all of his roommates stuff in garbage bags and was planning to throw it out. Per the psych high risk case manager, the patient was also tearing apart the apartment when his roommate got there. The patient's roommate then called EMS. The psych high risk case manager also reports that the patient does not have a mental health history. The psych case manger also reports that, according to the patient's roommate, the patient has been going to class and he is unaware of any drug or alcohol abuse. The patient's roommate also reported that the patient seems to be obsessed with drinking water and just started a new no carbohydrate diet. The patient's roommate adds that the patient seems to be a loner and just ruined the last friendship he had. The patient states that nothing is going on today and he is unsure of why he is here. The patient admits that he does not get along with his roommates, but he states that he is unsure of how long he has lived with them. He is also unsure of what his class year is or who the president is. The patient denies any pain, along with nausea and shortness of breath. The patient denies any significant medical problems and denies being to this hospital in the past. However, the patient was here about 1 month ago for altered mental status. He was admitted to the hospital and his altered mental status was attributed to NyQuil overuse. The patient denies any recent drug or alcohol use. 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 The patient states that his classes are not tough. 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 A total of 10 systems reviewed and were otherwise negative. Past Medical & Surgical Medical Problems: (1) Altered mental status (2) Medical history unknown (3) Overuse of medication Surgical Problems: (1) Surgical history unknown Family History No pertinent family history Social History Smoking Status: Never Smoker Alcohol Use: none Drug Use: none Marital Status: single Occupation Status: [employer] student Current/Historical Medications No Active Prescriptions or Reported Meds Allergies Coded Allergies: No Known Allergies (Unverified , 06/03/16) Physical Exam Vital Signs Date Time Temp Pulse Resp B/P Pulse Ox O2 Delivery O2 Flow Rate FiO2 06/29/16 13:51 37.0 56 16 142/72 98 Room Air Physical Exam GENERAL: alert, well appearing, well nourished, no distress, non-toxic EYE EXAM: normal conjunctiva, PERRL and EOM's grossly intact OROPHARYNX: no exudate, no erythema, lips, buccal mucosa, and tongue normal and mucous membranes are moist NECK: supple, no nuchal rigidity, no adenopathy, non-tender LUNGS: Clear to auscultation. Normal chest wall mechanics HEART: no murmurs, S1 normal and S2 normal ABDOMEN: abdomen soft, non-tender, normo-active bowel sounds, no masses, no rebound or guarding. BACK: Back is symmetrical on inspection and there is no deformity, no midline tenderness, no CVA tenderness. SKIN: no rashes and no bruising UPPER EXTREMITIES: upper extremities are grossly normal. LOWER EXTREMITIES: No pitting edema. NEURO EXAM: Normal sensorium, cranial nerves II-XII grossly intact, normal speech, no gross weakness of arms, no gross weakness of legs. PSYCH: flat affect, withdrawn. Medical Decision & Procedures Laboratory Results 06/29/16 15:30 Red Blood Count 5.42, Mean Corpuscular Volume 85.8, Mean Corpuscular Hemoglobin 29.7, Mean Corpuscular Hemoglobin Concent 34.6, Mean Platelet Volume 10.3, Neutrophils (%) (Auto) 58.5, Lymphocytes (%) (Auto) 27.4, Monocytes (%) (Auto) 13.0, Eosinophils (%) (Auto) 0.5, Basophils (%) (Auto) 0.5, Neutrophils # (Auto ) 4.38, Lymphocytes # (Auto) 2.06, Monocytes # (Auto) 0.98, Eosinophils # (Auto ) 0.04, Basophils # (Auto) 0.04 06/29/16 15:30 Test 06/29/16 13:48 06/29/16 13:50 06/29/16 15:30 Bedside Glucose 99 mg/dl (70-99) Urine Color YELLOW Urine Appearance CLEAR (CLEAR) Urine pH 6.5 (4.5-7.5) Urine Specific [place] <= 1.005 (1.000-1.030) Urine Protein NEG (NEG) Urine Glucose (UA) NEG (NEG) Urine Ketones NEG (NEG) Urine Occult Blood NEG (NEG) Urine Nitrite NEG (NEG) Urine Bilirubin NEG (NEG) Urine Urobilinogen NEG (NEG) Urine Leukocyte Esterase NEG (NEG) Urine Opiates Screen NEG (NEG) Urine Methadone, Qualitative NEG (NEG) Urine Barbiturates NEG (NEG) Urine Phencyclidine (PCP) Level NEG (NEG) Ur Amphetamine/Methamphetamine NEG (NEG) MDMA (Ecstasy) Screen NEG (NEG) Urine Benzodiazepines Screen NEG (NEG) Urine Cocaine Metabolite NEG (NEG) Urine Marijuana (THC) NEG (NEG) White Blood Count 7.51 K/uL (4.8-10.8) Red Blood Count 5.42 M/uL (4.7-6.1) Hemoglobin 16.1 g/dL (14.0-18.0) Hematocrit 46.5 % (42-52) Mean Corpuscular Volume 85.8 fL (80-100) Mean Corpuscular Hemoglobin 29.7 pg (25-34) Mean Corpuscular Hemoglobin Concent 34.6 g/dl (32-36) Platelet Count 286 K/uL (130-400) Mean Platelet Volume 10.3 fL (7.4-10.4) Neutrophils (%) (Auto) 58.5 % Lymphocytes (%) (Auto) 27.4 % Monocytes (%) (Auto) 13.0 % Eosinophils (%) (Auto) 0.5 % Basophils (%) (Auto) 0.5 % Neutrophils # (Auto) 4.38 K/uL (1.4-6.5) Lymphocytes # (Auto) 2.06 K/uL (1.2-3.4) Monocytes # (Auto) 0.98 K/uL (0.11-0.59) Eosinophils # (Auto) 0.04 K/uL (0-0.5) Basophils # (Auto) 0.04 K/uL (0-0.2) RDW Standard Deviation 42.5 fL (36.4-46.3) RDW Coefficient of Variation 13.6 % (11.5-14.5) Immature Granulocyte % (Auto) 0.1 % Immature Granulocyte # (Auto) 0.01 K/uL (0.00-0.02) Anion Gap 9.0 mmol/L (3-11) Est Creatinine Clear Calc Drug Dose 145.8 ml/min Estimated GFR () 134.7 Estimated GFR (Non- 116.2 BUN/Creatinine Ratio 11.2 (10-20) Calcium Level 9.5 mg/dl (8.5-10.1) Total Bilirubin 1.0 mg/dl (0.2-1) Aspartate Amino Transf (AST/SGOT) 21 U/L (15-37) Alanine Aminotransferase (ALT/SGPT) 36 U/L (12-78) Alkaline Phosphatase 75 U/L (45-117) Total Protein 8.4 gm/dl (6.4-8.2) Albumin 4.5 gm/dl (3.4-5.0) Globulin 3.9 gm/dl (2.5-4.0) Albumin/Globulin Ratio 1.2 (0.9-2) Salicylates Level < 1.7 mg/dl (2.8-20) Acetaminophen Level < 2 ug/ml (10-30) Ethyl Alcohol mg/dL < 3.0 mg/dl (0-3) Laboratory results per my review. Medications Administered Medications (Trade) Dose Ordered Sig/Robert Route Start Time Stop Time Status Last Admin Dose Admin Haloperidol Decanoate (Haldol Decanoate Inj) 5 mg ONE ONCE IM 06/29/16 17:00 06/29/16 17:01 DC 06/29/16 17:38 5 MG Lorazepam (Ativan Inj) 2 mg NOW STAT IM 06/29/16 16:56 06/29/16 16:58 DC 06/29/16 17:25 2 MG ED Course 1425: The patient was evaluated in room A7. A complete history and physical exam was performed. 1616: The psych high risk case manager informed me that the patient won't come in voluntarily, so they are filing a 302. 1630: The psych high risk case manager informed me that the patient is accepted at [address] [place] [address]. He also discussed the patient's case with the psychiatrist wesley, who informed him that the patient could be acutely psychotic if her overdosed on NyQuil within the past 3 days and it won't show up in his labs. He also requested that the [facility]: Ordered Ativan Inj 2 mg IM 1700: Ordered Haloperidol Decanoate 5 mg IM 1753: The patient's family is at bedside. I had a long discussion with them about why the patient needs to go to [address] [place] [address]. The psych high risk case manager as well as the charge nurse talked with the patient's family also. Medical Decision Differential diagnosis: Etiologies such as mood disorder, infection, hypoglycemia, electrolyte abnormalities, cardiac sources, intracerebral event, toxicologic, neurologic, as well as others were entertained. Reviewed recent labs/imaging, do not feel pt presentation warrants LP for encephalitis/meningitis. Doubt CVA. Possible related to tox/drug use again, however given presentation concern more for acute psychotic break. Impression Primary Impression: Psychosis Scribe Attestation The scribe's documentation has been prepared under my direction and personally reviewed by me in its entirety. I confirm that the note above accurately reflects all work, treatment, procedures, and medical decision making performed by me. Departure Information Dispostion [facility] ([address] [place] [address]) Prescriptions No Active Prescriptions or Reported Meds Referrals [facility] (PCP) Patient Instructions My [facility] Problem Qualifiers Primary Impression: Psychosis Psychosis type: unspecified psychosis type Qualified Codes: F29 - Unspecified psychosis not due to a substance or known physiological condition
[2016-06-29 15:30] LABS: BENZODIAZEPINE, URINE NEG (NEG); COCAINE,URINE NEG (NEG); PHENCYCLIDINE, URINE NEG (NEG)
[2016-06-29 15:42] LABS: BASO % 0.5 %; BASO ABS # 0.04 K/uL (0-0.2); COMPLETE YES; EOS % 0.5 %; HEMATOCRIT 46.5 % (42-52); IG% 0.1 %; LYMPH % 27.4 %; LYMPH ABS # 2.06 K/uL (1.2-3.4); MEAN CELL VOLUME 85.8 fL (80-100); MEAN CORPUSCULAR HEMOGLOBIN 29.7 pg (25-34); MEAN CORPUSCULAR HGB CONC 34.6 g/dl (32-36); MEAN PLATELET VOLUME 10.3 fL (7.4-10.4); NEUT % 58.5 %; PLATELET COUNT 286 K/uL (130-400); RED BLOOD COUNT 5.42 M/uL (4.7-6.1); WHITE BLOOD COUNT 7.51 K/uL (4.8-10.8)
[2016-06-29 16:04] LABS: BUN/CREATININE RATIO 11.2 (10-20); CALCIUM 9.5 mg/dl (8.5-10.1); CREATININE 0.94 mg/dl (0.60-1.40); POTASSIUM 3.9 mmol/L (3.5-5.1)
[2016-06-29 16:07] LABS: ALB/GLOB RATIO 1.2 (0.9-2)
[2016-06-29] MEDS ORDERED: LORAZEPAM 2 MG/ML 1 ML VIAL IM STA (16:56)
[2016-06-29 16:58] LABS: ACETAMINOPHEN < 2 ug/ml (10-30)
[2016-06-29] MEDS ORDERED: HALOPERIDOL DECANOATE INJ 50 MG/ML VIAL IM ONE (17:00)
[2016-06-29] MEDS ORDERED: NURSING VERBAL MED ORDER ONE ×2 (17:45→20:45)
[2016-06-29 19:50] VITALS: BP 142/72; PULSE 82; TEMP 37; BMI 27.4
[2016-06-29] MEDS ORDERED: ACETAMINOPHEN 325 MG TAB PO PRN (20:15)
[2016-06-29] MEDS ORDERED: SODIUM CHLORIDE 0.65% NA SOLN 45 ML (OCEAN) PRN (20:15)
[2016-06-29] MEDS ORDERED: hydrOXYzine HCL 25 MG TAB PO PRN ×2 (20:15)
[2016-06-29] MEDS ORDERED: ALUMINUM/MAGNESIUM SUSP 30 ML UDC PO PRN (20:15)
[2016-06-29] MEDS ORDERED: BISMUTH SUBSALICYLATE PER ML OMNICELL CHARGE PO PRN (20:15)
[2016-06-29] MEDS ORDERED: MAGNESIUM HYDROXIDE SUSP 30 ML UDC PO PRN (20:15)
[2016-06-29] MEDS ORDERED: LORAZEPAM INJ 1 MG in SYRINGE 0.5 ML IM PRN (21:15)
[2016-06-29] MEDS ORDERED: BENZTROPINE MESYLATE 1 MG/ML 2 ML AMP IM PRN (21:30)
[2016-06-29] MEDS ORDERED: HALOPERIDOL LACTATE 5 MG/ML 1 ML VIAL IM PRN (21:30)
[2016-06-30 06:42] VITALS: BP_SYST 152; BP_SYST 156; BP_DIAS 82; BP_DIAS 87; PULSE 101; PULSE 96; TEMP 36.3
[2016-06-30] MEDS: QUETIAPINE FUMARATE 25 MG TAB PO SCH ×2 (11:15→16:35)
--- NOTE | 2016-06-30 12:21 | Psychiatric History & Physical ---
History Identifying Data Bonifacio Erwin is a 21-year-old male who currently lives in [] [alone] with [] . Bonifacio Erwin was admitted on a [201 voluntary] [302 involuntary] commitment. Patient is admitted from [home] [transfer from the medical floor] . The patient was brought to the ED by the [police] [family] [ambulance] [self transport]. Information provided by the patient is considered to be [reliable] [unreliable]. Chief Complaint "I'm okay". History of Present Illness Patient is minimally verbal and denies knowledge of why he has presented to hospital. He admits that he has 5 roommates who have moved out but he is not sure why they moved out. He admits that he was admitted here to [facility] a few weeks ago for a few days but is unsure why he was admitted. When questioned if it was related to taking Nyquil or Dextromethorphan he denies using this or any other drugs or alcohol. Describes his mood as happy. Denies excessive worrying. Denies any manic episodes in the past. Admits to only sleeping 4 to 5 hours per night for the past 2 to 3 weeks for no apparent reason but denies any other excessive behaviors. Appetite is good but he has lost 20lbs over the past few months which he attributes wanting to get into shape. 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 Denies any thoughts to harm himself or others. Denies access to guns. Denies any confrontations or aggressiveness towards roommates who have moved out due to fear for their safety from him. Denies auditory or visual hallucinations or paranoia. Per the emergency room record: The patient is a 21 year old male who presents to the Emergency Room with complaints of a sudden mental health evaluation that was noticed earlier today. The patient came to the ED via ambulance from home. Per the psych dependency case manager, the patient lives with several roommates, but none of them are staying there because they are scared of him. One of the patient's roommates went to the apartment today to get stuff and when he got there the patient was there. The patient put all of his roommates stuff in garbage bags and was planning to throw it out. Per the psych dependency case manager, the patient was also tearing apart the apartment when his roommate got there. The patient's roommate then called EMS. The psych dependency case manager also reports that the patient does not have a mental health history. The psych case manger also reports that, according to the patient's roommate, the patient has been going to class and he is unaware of any drug or alcohol abuse. The patient's roommate also reported that the patient seems to be obsessed with drinking water and just started a new no carbohydrate diet. The patient's roommate adds that the patient seems to be a loner and just ruined the last friendship he had. The patient states that nothing is going on today and he is unsure of why he is here. The patient admits that he does not get along with his roommates, but he states that he is unsure of how long he has lived with them. He is also unsure of what his class year is or who the president is. The patient denies any pain, along with nausea and shortness of breath. The patient denies any significant medical problems and denies being to this hospital in the past. However, the patient was here about 1 month ago for altered mental status. He was admitted to the hospital and his altered mental status was attributed to NyQuil overuse. The patient denies any recent drug or alcohol use. 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 The patient states that his classes are not tough. Past Psychiatric History Current OP Treatment: no current treatment Prior OP Treatment: no prior treatment (1) Altered mental status (2) Overuse of medication (3) Psychosis Past Medical/Surgical History History of Obesity: No History of HTN: No History of Diabetes: No History of Heart Disease: No History of Dyslipidemia: No History of Concussion/Seizure: No Problem List: Allergies Allergies: Coded Allergies: No Known Allergies (Unverified , 06/03/16) Home Medications No Active Prescriptions or Reported Meds Family History No pertinent family history No family history of psychiatric problems or suicide attempts. Denies any family history of substance abuse or medical problems. 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 and claims that he has a 3.8 GPA) Relationship History: never Legal History: none Abuse History: none Review of Systems Constitutional: no symptoms reported Eyes: reports: no symptoms ENT: reports: no symptoms reported Cardiovascular: reports: no symptoms reported Respiratory: reports: no symptoms reported Gastrointestinal: no symptoms reported Musculoskeletal: no symptoms reported Integumentary: no symptoms reported Neurologic: reports: no symptoms Endocrine: no symptoms Hematologic / Lymphatic: no symptoms Examination Physical Examination Reviewed and accepted physical examination completed by Awa Ontiveros DO Vital Signs Vital Signs Past 12 Hours Date Time Temp Pulse Resp B/P Pulse Ox O2 Delivery O2 Flow Rate FiO2 06/30/16 06:42 36.3 101 16 152/87 96 156/82 Laboratory Results Last 24 Hours Test 06/29/16 13:48 06/29/16 13:50 06/29/16 15:30 Bedside Glucose 99 mg/dl Urine Color YELLOW Urine Appearance CLEAR Urine pH 6.5 Urine Specific [place] <= 1.005 Urine Protein NEG Urine Glucose (UA) NEG Urine Ketones NEG Urine Occult Blood NEG Urine Nitrite NEG Urine Bilirubin NEG Urine Urobilinogen NEG Urine Leukocyte Esterase NEG Urine Opiates Screen NEG Urine Methadone, Qualitative NEG Urine Barbiturates NEG Urine Phencyclidine (PCP) Level NEG Ur Amphetamine/Methamphetamine NEG MDMA (Ecstasy) Screen NEG Urine Benzodiazepines Screen NEG Urine Cocaine Metabolite NEG Urine Marijuana (THC) NEG White Blood Count 7.51 K/uL Red Blood Count 5.42 M/uL Hemoglobin 16.1 g/dL Hematocrit 46.5 % Mean Corpuscular Volume 85.8 fL Mean Corpuscular Hemoglobin 29.7 pg Mean Corpuscular Hemoglobin Concent 34.6 g/dl Platelet Count 286 K/uL Mean Platelet Volume 10.3 fL Neutrophils (%) (Auto) 58.5 % Lymphocytes (%) (Auto) 27.4 % Monocytes (%) (Auto) 13.0 % Eosinophils (%) (Auto) 0.5 % Basophils (%) (Auto) 0.5 % Neutrophils # (Auto) 4.38 K/uL Lymphocytes # (Auto) 2.06 K/uL Monocytes # (Auto) 0.98 K/uL Eosinophils # (Auto) 0.04 K/uL Basophils # (Auto) 0.04 K/uL RDW Standard Deviation 42.5 fL RDW Coefficient of Variation 13.6 % Immature Granulocyte % (Auto) 0.1 % Immature Granulocyte # (Auto) 0.01 K/uL Sodium Level 142 mmol/L Potassium Level 3.9 mmol/L Chloride Level 106 mmol/L Carbon Dioxide Level 27 mmol/L Anion Gap 9.0 mmol/L Blood Urea Nitrogen 10 mg/dl Creatinine 0.94 mg/dl Est Creatinine Clear Calc Drug Dose 145.8 ml/min Estimated GFR () 134.7 Estimated GFR (Non- 116.2 BUN/Creatinine Ratio 11.2 Random Glucose 87 mg/dl Calcium Level 9.5 mg/dl Total Bilirubin 1.0 mg/dl Aspartate Amino Transf (AST/SGOT) 21 U/L Alanine Aminotransferase (ALT/SGPT) 36 U/L Alkaline Phosphatase 75 U/L Total Protein 8.4 gm/dl Albumin 4.5 gm/dl Globulin 3.9 gm/dl Albumin/Globulin Ratio 1.2 Salicylates Level < 1.7 mg/dl Acetaminophen Level < 2 ug/ml Ethyl Alcohol mg/dL < 3.0 mg/dl Mental Examination During interview pt is: guarded Appearance: appropriately dressed, appropriately groomed Eye contact is: poor Motor behavior is: no abnormal motor movements Speech: other (slowed and underproductive) Affect: blunted Mood is: other (good) Thought process: blocking Thought content: reality based without delusions Suicidal thought are: denied Homicidal thoughts are: denied Hallucinations: denies auditory, denies visual Cognition: other (Poor short term memory - recalled 1/3 objects after 5 minutes.) Intelligence estimated to be: consistent with level of education Insight: severely impaired Judgement: severely impaired Impression / Recommendations Impression 21 year old male presents with acute psychosis. History of recent Nyquil overdose but patient denies recall of this and denies using any Nyquil recently. Risk Factors Assessment Male: Yes : Yes Access to guns: No Protective Factors Assessment : No Employed: No Stable relationships: No Recommendations (1) Psychosis 06/30/16 -Discussed risks, benefits and alternatives of Seroquel including metabolic syndrome including diabetes associated with medication and he is agreeable to a trial of medication to address psychosis. Patient is agreeable to initiating Seroquel at 50mg qAM and 100mg qbedtime. -will work on obtaining collateral history including family history and substance use history to attempt to further clarify diagnosis. -will place on q15 minute checks to monitor patient in private room given history of aggression towards roommates and destruction of his residence. (2) Altered mental status 06/29/16 -will provide ongoing reorientation and reality checks with patient -will attempt to identify any sources of substance use or other causes of altered mental status (3) Overuse of medication 06/30/16 - Will attempt to further clarify substance use such as Nyquil which he currently denies but has a history of overdosing on 3 weeks ago. CPT Code Initial Hospital Care: 60653 Problem Qualifiers (1) Psychosis: Psychosis type: unspecified psychosis type Qualified Codes: F29 - Unspecified psychosis not due to a substance or known physiological condition (2) Altered mental status: Altered mental status type: disorientation Qualified Codes: R41.0 - Disorientation, unspecified
[2016-06-30] MEDS: LORAZEPAM 1 MG TAB PO PRN (15:59)
[2016-06-30] MEDS: BENZTROPINE MESYLATE 1 MG TAB PO PRN (16:00)
[2016-06-30] MEDS: HALOPERIDOL 5 MG TAB PO PRN (16:00)
[2016-06-30] MEDS ORDERED: QUETIAPINE FUMARATE 25 MG TAB PO PRN (19:45)
[2016-06-30] MEDS ORDERED: QUETIAPINE FUMARATE 100 MG TAB PO SCH (22:00)
[2016-07-01 07:01] VITALS: BP_SYST 113; BP_SYST 156; BP_DIAS 77; BP_DIAS 99; PULSE 120; PULSE 83; TEMP 36.9
[2016-07-01 07:07] VITALS: Ht 188 cm; Wt 96.7 kg
[2016-07-01] MEDS: QUETIAPINE FUMARATE 25 MG TAB PO SCH (08:41)
[2016-07-01] MEDS ORDERED: RISPERIDONE ODT 1MG PO ONE (12:37)
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
[2016-07-01] MEDS: RISPERIDONE ODT 1MG PO SCH (21:15)
[2016-07-02 06:59] VITALS: BP_SYST 127; BP_SYST 128; BP_DIAS 69; BP_DIAS 75; PULSE 87; PULSE 91; TEMP 36.5
[2016-07-02] MEDS: RISPERIDONE ODT 1MG PO SCH ×2 (08:59→21:25)
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
[2016-07-03 06:57] VITALS: BP_SYST 121; BP_SYST 130; BP_DIAS 68; BP_DIAS 71; PULSE 112; PULSE 84; TEMP 36.8
[2016-07-03] MEDS ORDERED: RISPERIDONE ODT 1MG PO SCH (09:00)
--- NOTE | 2016-07-03 11:44 | Psychiatric Progress Notes ---
Progress Note Date of Service Jul 03, 2016. 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 He was admitted on a 302. Chief Complaint "Tired". Subjective Patient was seen & assessed interval progress reviewed with Treatment Team. Staff report he did not say much in his family meeting, did not even know what classes he was taking the semester, and was often observed sitting and staring blankly on the unit, with little interaction with others. He has refused all groups except for one, and when he attended, did not participate. He has no spontaneous speech, and when asked direct questions, will respond with one or 2 word answers. He appeared confused on the unit, coming to the nurses station to attend group, and had to be directed to the right room. He took a whole box of popsicles out of the freezer and put in his room, and staff later found them melted. He slept 5 hours overnight. Today, he was seen in his room, where he has returned to bed midday. He states he has not attended any groups yet today , although staff report he was in group, but did not participate and appeared thought blocked. He says he has "no idea" why he has here in the hospital, and when asked if others had expressed concerns about him, he said they had, but could not give any further clarifying information. He gives conflicting reports as he agrees that he is having trouble organizing and expressing his thoughts, but later when asked if he feels he is at baseline, says yes. He is not sure when he last saw his mother, and is not sure if she visited this morning or not. He cannot tell me what was discussed in their family meeting yesterday, saying "not sure." He denies that he is having auditory or visual hallucinations today, and cannot tell me when he last experienced them. He says he does remember talking about this yesterday, but can give no further information about the hallucinations. He says he will "probably just go home" when discharged, but is not able to repeat the treatment recommendations, including the need for ongoing medications or outpatient follow-up, when it is reviewed with him. I explained that I would be filing for a 303 commitment, due to his inability to think and communicate clearly, and also explained our recommendations regarding treatment, including going to the groups and trying to participate and interact with others more, and to be able to demonstrate an ability to care for himself and remain in control of his behavior, given multiple recent episodes of aggression. He expressed understanding, and agreed to try to go to the groups today. Sleep Information Total Hours of Sleep: 5.00 Meal Information Percent of Breakfast Consumed: 90 Percent of Lunch Consumed: 100 Percent of Dinner Consumed: 100 Mental Status Exam During interview pt is: guarded, other (lying in bed but awake, partially cooperative, keeps eyes closed, limited historian) Appearance: appropriately dressed, appropriately groomed (short hair, wearing glasses) Eye contact is: fair, other (Refuses to make eye contact, keeps eyes closed.) Motor behavior is: psychomotor retardation Speech: other (Minimal, delayed, slowed) Affect: flat Mood is: other ("not sure") Thought process: blocking Thought content: other (paucity of content) Suicidal thought are: denied Homicidal thoughts are: denied Hallucinations: denies auditory, denies visual Cognition: other (memory and attention impaired) Intelligence estimated to be: consistent with level of education Insight: severely impaired Judgement: severely impaired Impression 21 year old male presents with acute psychosis. History of recent Nyquil overdose but patient denies recall of this and denies using any Nyquil recently. Appears thoughts blocked and has been aggressive here, shoving his father, and poorly engaged with others. Has also endorsed AVH, paranoia, and thought broadcasting, but poorly able to characterize these. Risperidone has been titrated up, and he is taking it as prescribed, but continues to show severe affect restriction, thought blocking, and poor engagement with others. He is refusing most groups, and when he goes, does not participate. He isolates in his room, and is unable to answer questions with more than one or 2 word answers. He continues to have disorganized and bizarre behavior, required staff assistance to find the group room, and took a whole box of popsicles into his room where he allowed them to melt. He remains at increased risk for harm to others given his multiple recent episodes of violent behavior and altered thought process. He requires an additional period of monitoring while medications are adjusted, as well as referral for outpatient psychiatric treatment in [place]. Will file for a 303 commitment with the hearing to be held tomorrow. Plan (1) Psychosis 06/30/16 -Discussed risks, benefits and alternatives of Seroquel including metabolic syndrome including diabetes associated with medication and he is agreeable to a trial of medication to address psychosis. Patient is agreeable to initiating Seroquel at 50mg qAM and 100mg qbedtime. -will work on obtaining collateral history including family history and substance use history to attempt to further clarify diagnosis. -will place on q15 minute checks to monitor patient in private room given history of aggression towards roommates and destruction of his residence. 07/01 - Ddx includes primary thought disorder, psychotic mood disorder, effects of a substance (synthetics were not drawn on admission), delirium, and organic cause. Was admitted medically 06/03 after 2 days of AMS and then Kasandra found him on floor slow to respond, thought initially to be a question of concussion from boxing. His friends and family denied any substance abuse history, and he denied any head injury or actual boxing contact. Neuro was consulted and rec MRI of brain and EEG, which were normal. He had Lyme testing, ESR, and cardiac enzymes which were normal. AM cortisol was high (29.35), but total and free testosterone, renin, and aldosterone were normal. He was discharged 06/05 with diagnosis of Nyquil overdose, but it is not clear where this information came from, as no other mention of medication use or abuse found in the record. - Discontinue quetiapine and start risperidone M tab 1mg bid to target psychosis, as it is a more potent antipsychotic and there is a decreased risk of cheeking with the Mtab. - Get collateral information from roommates and parents. - Consider need to file for a 303 commitment. - Continue Haldol 5mg, lorazepam 1mg, and benztropine 1mg prn psychosis. - Met with mother for about 1 hour to review history and recent symptoms, current working diagnosis, and treatment recommendations. 07/02 - Ongoing psychosis, admitting to [facility], paranoia, ideas of reference, and thought broadcasting. Poorly able to further characterize or give detail when asked, suspect thought blocking. Increase risperidone to 1mg qam and 2mg qhs. 07/03 - Patient continues to appear extremely thought blocked, slowed, and confused. Will consolidate risperidone to 3 mg at bedtime for tomorrow to try to limit daytime sedation area he has agreed to attend groups and try to participate today, and will schedule a 303 hearing for tomorrow. If we are able to secure appropriate aftercare in the [place] area, he may be able to be discharged within the next week, but want to ensure that his psychosis is improving, which has been difficult to do given his thought blocking and limited ability to participate in the assessment process. (2) Altered mental status 06/29/16 -will provide ongoing reorientation and reality checks with patient -will attempt to identify any sources of substance use or other causes of altered mental status 07/01 -oriented to day, hospital, and unit, but not to year, date, season or floor. Doesn't remember how he came to the hospital or events last evening. -rule out delirium component. (3) Overuse of medication 06/30/16 - Will attempt to further clarify substance use such as Nyquil which he currently denies but has a history of overdosing on 3 weeks ago. 07/01 - Patient's mother does not think he has been abusing substances. She called staff after she found Adderall in his apartment, but said his roommates take it. 07/02 - Patient denies taking Adderall or any other substances. Discharge / Aftercare Planning Therapist: Name: Facundo Morton at [facility] Appointment Notes: mom's recommendation Bolivar Gonzalez Visit Code E&M Code: 07674 Risk Factors Assessment Male: Yes : Yes /single/: No Health problems: No Mental Health Diagnoses: No Substance use disorders: Yes Previous psychiatric stay: No Protective Factors Assessment : No Responsible for young children: No Employed: No Stable relationships: No Supportive family: Yes Good rapport with provider: No Data Vital Signs Last 24 Hrs: Date Time Temp Pulse Resp B/P Pulse Ox O2 Delivery O2 Flow Rate FiO2 07/03/16 06:57 36.8 84 18 121/68 112 130/71 Meds Administered Last 24 Hrs: Meds Administered (Past 24Hrs) Medications (Trade) Dose Ordered Sig/Robert Route Start Time Stop Time Status Last Admin Dose Admin Risperidone (Risperdal M Tab) 1 mg BID PO 07/01/16 22:00 07/02/16 11:36 DC 07/02/16 08:59 1 MG Risperidone (Risperdal M Tab) 1 mg 1237 ONCE PO 07/01/16 12:37 07/01/16 12:44 DC 07/01/16 13:21 1 MG Risperidone (Risperdal M Tab) 1 mg QAM PO 07/03/16 09:00 08/02/16 08:59 07/03/16 08:43 1 MG Risperidone (Risperdal M Tab) 2 mg HS PO 07/02/16 22:00 08/01/16 21:59 07/02/16 21:25 2 MG Problem Qualifiers (1) Psychosis: Psychosis type: unspecified psychosis type Qualified Codes: F29 - Unspecified psychosis not due to a substance or known physiological condition (2) Altered mental status: Altered mental status type: disorientation Qualified Codes: R41.0 - Disorientation, unspecified
[2016-07-03 19:43] VITALS: BP 126/76
[2016-07-03 19:44] VITALS: BP 131/78
[2016-07-03 21:05] VITALS: BP 134/75; PULSE 74
[2016-07-03] MEDS: RISPERIDONE ODT 1MG PO SCH (21:05)
[2016-07-04 06:39] VITALS: BP_SYST 124; BP_SYST 131; BP_DIAS 72; BP_DIAS 79; PULSE 73; PULSE 82; TEMP 36.9
--- NOTE | 2016-07-04 08:29 | Psychiatric Progress Notes ---
Progress Note Date of Service Jul 04, 2016. 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 He was admitted on a 302. Chief Complaint "okay". Subjective Patient was seen & assessed interval progress reviewed with nursing. Staff report he remains thought blocked and confused, requires staff assistance for ADLs, and was unable to follow through on taking a shower even with staff gathering all the items for him. His mother visited and met with his manager social responsibility for an update. Met with the patient and his mother this morning. He says mood is "better," and says he is trying to go to groups. He admits he wasn't able to follow through on his shower yesterday, and when asked why not, pauses for a while, then says he was feeling lightheaded. He denies AVH and paranoia, and cannot offer any further explanation of the psychotic symptoms he endorsed during hospitalization. He continues to answer "no" or "not sure" to most questions. He says he doesn't recall the events prior to admission, and when asked why he is here, says "not sleeping, working out too much." His mother states he was taking melatonin at home to try to sleep, he reports 2 tabs a night for 3 nights prior to presentation, dose unknown. She says she read an article online that said that if people with depression and anxiety overdose on melatonin they can become psychotic. She is worried about her ability to afford to stay in [place] in a hotel, saying it is expensive and she can't stay through the weekend, but can't leave her son here. She wants the hearing today to be only for 2 additional days of treatment, and then to have another hearing. Explained involuntary commitment law and and reviewed his most recent estimated length of stay. Again reviewed concerns about patient's psychosis, disorganized behavior, and aggression. Again reviewed medication, dose adjustments, and the plan for the next few days. He did not testify at his hearing and had told his senior attorney he was not contesting, and that he was not prescribed any medications. His mother requested to attend the hearing and testify, and reviewed the plans the family is making to move him back home and have him finish school remotely from there. She is in the process of trying to find him a psychiatrist, and has scheduled him with a pastoral counselor. She is encouraging him to transfer to [facility]. She said she wants to take him home today because it is a financial burden for him to be here, they have the best doctors and hospitals there, and she feels he needs "extreme rest." Sleep Information Total Hours of Sleep: 6.50 Meal Information Percent of Breakfast Consumed: 90 Percent of Lunch Consumed: 100 Percent of Dinner Consumed: 100 Mental Status Exam During interview pt is: guarded, other (lying in bed but awake, limited historian) Appearance: appropriately dressed (sweatpants and tshirt), appropriately groomed (short hair, wearing glasses) Eye contact is: poor Motor behavior is: no abnormal motor movements Speech: other (Minimal, delayed, slowed) Affect: flat Mood is: other ("okay") Thought process: blocking Thought content: other (paucity of content) Suicidal thought are: denied Homicidal thoughts are: denied Hallucinations: denies auditory, denies visual Cognition: other (memory and attention impaired) Intelligence estimated to be: consistent with level of education Insight: severely impaired Judgement: severely impaired Impression 21 year old male presents with acute psychosis. History of recent Nyquil overdose but patient denies recall of this and denies using any Nyquil recently. Appears thoughts blocked and has been aggressive here, shoving his father, and poorly engaged with others. Has also endorsed AVH, paranoia, and thought broadcasting, but poorly able to characterize these. Risperidone has been titrated up, and he is taking it as prescribed, but continues to show severe affect restriction, thought blocking, and poor engagement with others. He is refusing most groups, and when he goes, does not participate. He isolates in his room, and is unable to answer questions with more than one or 2 word answers. He continues to have disorganized and bizarre behavior, required staff assistance to find the group room, and took a whole box of popsicles into his room where he allowed them to melt. He remains at increased risk for harm to others given his multiple recent episodes of violent behavior and altered thought process. He requires an additional period of monitoring while medications are adjusted, as well as referral for outpatient psychiatric treatment in [place]. On a 303 as of 07/04/16. Plan (1) Psychosis 06/30/16 -Discussed risks, benefits and alternatives of Seroquel including metabolic syndrome including diabetes associated with medication and he is agreeable to a trial of medication to address psychosis. Patient is agreeable to initiating Seroquel at 50mg qAM and 100mg qbedtime. -will work on obtaining collateral history including family history and substance use history to attempt to further clarify diagnosis. -will place on q15 minute checks to monitor patient in private room given history of aggression towards roommates and destruction of his residence. 07/01 - Ddx includes primary thought disorder, psychotic mood disorder, effects of a substance (synthetics were not drawn on admission), delirium, and organic cause. Was admitted medically 06/03 after 2 days of AMS and then Kasandra found him on floor slow to respond, thought initially to be a question of concussion from boxing. His friends and family denied any substance abuse history, and he denied any head injury or actual boxing contact. Neuro was consulted and rec MRI of brain and EEG, which were normal. He had Lyme testing, ESR, and cardiac enzymes which were normal. AM cortisol was high (29.35), but total and free testosterone, renin, and aldosterone were normal. He was discharged 06/05 with diagnosis of Nyquil overdose, but it is not clear where this information came from, as no other mention of medication use or abuse found in the record. - Discontinue quetiapine and start risperidone M tab 1mg bid to target psychosis, as it is a more potent antipsychotic and there is a decreased risk of cheeking with the Mtab. - Get collateral information from roommates and parents. - Consider need to file for a 303 commitment. - Continue Haldol 5mg, lorazepam 1mg, and benztropine 1mg prn psychosis. - Met with mother for about 1 hour to review history and recent symptoms, current working diagnosis, and treatment recommendations. 07/02 - Ongoing psychosis, admitting to AV, paranoia, ideas of reference, and thought broadcasting. Poorly able to further characterize or give detail when asked, suspect thought blocking. Increase risperidone to 1mg qam and 2mg qhs. 07/03 - Patient continues to appear extremely thought blocked, slowed, and confused. Will consolidate risperidone to 3 mg at bedtime for tomorrow to try to limit daytime sedation area he has agreed to attend groups and try to participate today, and will schedule a 303 hearing for tomorrow. If we are able to secure appropriate aftercare in the [place] area, he may be able to be discharged within the next week, but want to ensure that his psychosis is improving, which has been difficult to do given his thought blocking and limited ability to participate in the assessment process. 07/04 - 303 hearing held and granted. - Continue risperidone 3mg qhs. - Encourage patient to attend groups and participate, encourage communication about symptoms and thought process. - Patient has been in good behavioral control for the past few days, without aggressive behavior, so will discontinue private room. (2) Altered mental status 06/29/16 -will provide ongoing reorientation and reality checks with patient -will attempt to identify any sources of substance use or other causes of altered mental status 07/01 -oriented to day, hospital, and unit, but not to year, date, season or floor. Doesn't remember how he came to the hospital or events last evening. -rule out delirium component. (3) Overuse of medication 06/30/16 - Will attempt to further clarify substance use such as Nyquil which he currently denies but has a history of overdosing on 3 weeks ago. 07/01 - Patient's mother does not think he has been abusing substances. She called staff after she found Adderall in his apartment, but said his roommates take it. 07/02 - Patient denies taking Adderall or any other substances. Discharge / Aftercare Planning Psychiatrist: Name: Dr Alanis at [facility] Appointment Notes: pending Therapist: Name: Facundo Morton at [facility] Phone Number: or [phone] Date of Appointment: Jul 11, 2016 Time of Appointment: 11:00 Appointment Notes: mom's recommendation Bolivar Gonzalez Visit Code E&M Code: 32936 (Total time spent with patient, mother, and in hearing >60 minutes.) Risk Factors Assessment Male: Yes : Yes /single/: No Health problems: No Mental Health Diagnoses: No Substance use disorders: Yes (possible Nyquil overdose 3 weeks ago) Previous psychiatric stay: No Protective Factors Assessment : No Responsible for young children: No Employed: No Stable relationships: No Supportive family: Yes Good rapport with provider: No Data Vital Signs Last 24 Hrs: Date Time Temp Pulse Resp B/P Pulse Ox O2 Delivery O2 Flow Rate FiO2 07/04/16 06:39 36.9 73 18 131/72 82 124/79 07/03/16 21:05 74 134/75 07/03/16 19:44 131/78 07/03/16 19:43 126/76 Meds Administered Last 24 Hrs: Meds Administered (Past 24Hrs) Medications (Trade) Dose Ordered Sig/Robert Route Start Time Stop Time Status Last Admin Dose Admin Risperidone (Risperdal M Tab) 1 mg QAM PO 07/03/16 09:00 08/02/16 08:59 07/03/16 08:43 1 MG Risperidone (Risperdal M Tab) 2 mg HS PO 07/02/16 22:00 08/01/16 21:59 07/03/16 21:05 2 MG Problem Qualifiers (1) Psychosis: Psychosis type: unspecified psychosis type Qualified Codes: F29 - Unspecified psychosis not due to a substance or known physiological condition (2) Altered mental status: Altered mental status type: disorientation Qualified Codes: R41.0 - Disorientation, unspecified
[2016-07-04 19:28] VITALS: BP 160/77; PULSE 91; TEMP 36.5
[2016-07-04] MEDS: LORAZEPAM 1 MG TAB PO PRN (19:29)
[2016-07-04] MEDS: HALOPERIDOL 5 MG TAB PO PRN (19:30)
[2016-07-04] MEDS: BENZTROPINE MESYLATE 1 MG TAB PO PRN (19:40)
[2016-07-04] MEDS: RISPERIDONE ODT 1MG PO SCH (21:22)
[2016-07-05 06:39] VITALS: BP_SYST 118; BP_SYST 121; BP_DIAS 65; BP_DIAS 74; PULSE 80; PULSE 84; TEMP 36.9
--- NOTE | 2016-07-05 10:54 | Psychiatric Progress Notes ---
Progress Note Date of Service Jul 05, 2016. 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 He was admitted on a 302. Chief Complaint "OK". Subjective Patient was seen & assessed interval progress reviewed with Treatment Team. The patient says that he is "OK". He feels slightly less tired today than yesterday. He has been attending groups but with minimal spontaneous participation. Today he says that he thinks that meds are helping him to think more clearly, and is denying aud/vis hallucinations. His plan is to return home to [place] at discharge, take some time off after this semester and then either take classes at [facility] or on line classes through [employer]. He has had good interactions with his mother. Nursing describes him as looking thought blocked, and last evening was loitering by the front exit as if wanting to leave , and requiring redirection. He recieved prns of haldol, ativan and cogentin. Review of Systems Constitutional: + fatigue ENT: No dental problems, No hearing loss, No nasal symptoms, No problem reported, No sore throat, No tinnitus, No trouble swallowing, No unusual epistaxis Respiratory: No cough, No dyspnea at rest, No dyspnea on exertion, No hemoptysis, No problem reported, No shortness of breath, No sputum, No wheezing Cardiovascular: No PND, No chest pain, No claudication, No edema, No orthopnea , No palpitations, No problem reported Abdomen: No GI bleeding, No constipation, No diarrhea, No nausea, No pain, No problem reported, No vomiting Musculoskeletal: No calf pain, No joint pain, No muscle pain, No problem reported, No swelling Neurologic: No balance problems, No memory loss, No numbness/tingling, No paralysis, No problem reported, No vertigo, No weakness Psychiatric: + problem reported (denies mood problems or evidence of psychosis today) Integumentary: No bleeding, No color change, No itch, No new/changing skin lesions, No problem reported, No rash Sleep Information Total Hours of Sleep: 8.00 Meal Information Percent of Breakfast Consumed: 50 Percent of Lunch Consumed: 100 Percent of Dinner Consumed: 50 Mental Status Exam During interview pt is: cooperative Appearance: appropriately dressed (sweatpants and tshirt), appropriately groomed (short hair, wearing glasses) Eye contact is: fair Motor behavior is: steady gait & station, no abnormal motor movements Speech: normal in rate, rhythm & volume (but minimal) Affect: flat Mood is: other ("okay") Thought process: goal directed Thought content: reality based without delusions, other (paucity of content) Suicidal thought are: denied Homicidal thoughts are: denied Hallucinations: denies auditory, denies visual Cognition: attention grossly intact, language grossly intact Intelligence estimated to be: consistent with level of education Insight: impaired Judgement: impaired Impression Patient's 303 granted yesterday. Mother still trying to find other reasons for her son's presentation, including blaming the meds, or his intelligence and even wondering if he has Asperger's. Primo seems slightly more fluid in his communications today, and even smiled once during our interaction, but remains blunted and schizoid in his interactions. Risperdal was moved to in an effort to reduce daytime sedation. Will continue current meds. Plan (1) Psychosis 06/30/16 -Discussed risks, benefits and alternatives of Seroquel including metabolic syndrome including diabetes associated with medication and he is agreeable to a trial of medication to address psychosis. Patient is agreeable to initiating Seroquel at 50mg qAM and 100mg qbedtime. -will work on obtaining collateral history including family history and substance use history to attempt to further clarify diagnosis. -will place on q15 minute checks to monitor patient in private room given history of aggression towards roommates and destruction of his residence. 07/01 - Ddx includes primary thought disorder, psychotic mood disorder, effects of a substance (synthetics were not drawn on admission), delirium, and organic cause. Was admitted medically 06/03 after 2 days of AMS and then Kasandra found him on floor slow to respond, thought initially to be a question of concussion from boxing. His friends and family denied any substance abuse history, and he denied any head injury or actual boxing contact. Neuro was consulted and rec MRI of brain and EEG, which were normal. He had Lyme testing, ESR, and cardiac enzymes which were normal. AM cortisol was high (29.35), but total and free testosterone, renin, and aldosterone were normal. He was discharged 06/05 with diagnosis of Nyquil overdose, but it is not clear where this information came from, as no other mention of medication use or abuse found in the record. - Discontinue quetiapine and start risperidone M tab 1mg bid to target psychosis, as it is a more potent antipsychotic and there is a decreased risk of cheeking with the Mtab. - Get collateral information from roommates and parents. - Consider need to file for a 303 commitment. - Continue Haldol 5mg, lorazepam 1mg, and benztropine 1mg prn psychosis. - Met with mother for about 1 hour to review history and recent symptoms, current working diagnosis, and treatment recommendations. 07/02 - Ongoing psychosis, admitting to [facility], paranoia, ideas of reference, and thought broadcasting. Poorly able to further characterize or give detail when asked, suspect thought blocking. Increase risperidone to 1mg qam and 2mg qhs. 07/03 - Patient continues to appear extremely thought blocked, slowed, and confused. Will consolidate risperidone to 3 mg at bedtime for tomorrow to try to limit daytime sedation area he has agreed to attend groups and try to participate today, and will schedule a 303 hearing for tomorrow. If we are able to secure appropriate aftercare in the [place] area, he may be able to be discharged within the next week, but want to ensure that his psychosis is improving, which has been difficult to do given his thought blocking and limited ability to participate in the assessment process. 07/04 - 303 hearing held and granted. - Continue risperidone 3mg qhs. - Encourage patient to attend groups and participate, encourage communication about symptoms and thought process. - Patient has been in good behavioral control for the past few days, without aggressive behavior, so will discontinue private room. 07/05 - Continue current plan (2) Altered mental status 06/29/16 -will provide ongoing reorientation and reality checks with patient -will attempt to identify any sources of substance use or other causes of altered mental status 07/01 -oriented to day, hospital, and unit, but not to year, date, season or floor. Doesn't remember how he came to the hospital or events last evening. -rule out delirium component. (3) Overuse of medication 06/30/16 - Will attempt to further clarify substance use such as Nyquil which he currently denies but has a history of overdosing on 3 weeks ago. 07/01 - Patient's mother does not think he has been abusing substances. She called staff after she found Adderall in his apartment, but said his roommates take it. 07/02 - Patient denies taking Adderall or any other substances. Discharge / Aftercare Planning Psychiatrist: Name: Dr Alanis at [facility] Appointment Notes: pending Therapist: Name: Facundo Morton at [facility] Phone Number: [phone] or [phone] Date of Appointment: Jul 11, 2016 Time of Appointment: 11:00 Appointment Notes: mom's recommendation Bolivar Gonzalez Visit Code E&M Code: 78630 Risk Factors Assessment Male: Yes : Yes /single/: No Health problems: No Mental Health Diagnoses: No Substance use disorders: Yes (possible Nyquil overdose 3 weeks ago) Previous psychiatric stay: No Protective Factors Assessment : No Responsible for young children: No Employed: No Stable relationships: No Supportive family: Yes Good rapport with provider: No Data Vital Signs Last 24 Hrs: Date Time Temp Pulse Resp B/P Pulse Ox O2 Delivery O2 Flow Rate FiO2 07/05/16 06:39 36.9 80 16 118/65 84 121/74 07/04/16 19:28 36.5 91 160/77 Meds Administered Last 24 Hrs: Meds Administered (Past 24Hrs) Medications (Trade) Dose Ordered Sig/Robert Route Start Time Stop Time Status Last Admin Dose Admin Risperidone (Risperdal M Tab) 3 mg HS PO 07/04/16 22:00 08/03/16 21:59 07/04/16 21:22 3 MG Lab Results Last 24 Hrs: 06/29/16 15:30 Red Blood Count 5.42, Mean Corpuscular Volume 85.8, Mean Corpuscular Hemoglobin 29.7, Mean Corpuscular Hemoglobin Concent 34.6, Mean Platelet Volume 10.3, Neutrophils (%) (Auto) 58.5, Lymphocytes (%) (Auto) 27.4, Monocytes (%) (Auto) 13.0, Eosinophils (%) (Auto) 0.5, Basophils (%) (Auto) 0.5, Neutrophils # (Auto ) 4.38, Lymphocytes # (Auto) 2.06, Monocytes # (Auto) 0.98, Eosinophils # (Auto ) 0.04, Basophils # (Auto) 0.04 06/29/16 15:30 Test 06/29/16 13:48 06/29/16 13:50 06/29/16 15:30 07/02/16 04:30 Bedside Glucose 99 mg/dl (70-99) Urine Color YELLOW Urine Appearance CLEAR (CLEAR) Urine pH 6.5 (4.5-7.5) Urine Specific [place] <= 1.005 (1.000-1.030) Urine Protein NEG (NEG) Urine Glucose (UA) NEG (NEG) Urine Ketones NEG (NEG) Urine Occult Blood NEG (NEG) Urine Nitrite NEG (NEG) Urine Bilirubin NEG (NEG) Urine Urobilinogen NEG (NEG) Urine Leukocyte Esterase NEG (NEG) Urine Opiates Screen NEG (NEG) Urine Methadone, Qualitative NEG (NEG) Urine Barbiturates NEG (NEG) Urine Phencyclidine (PCP) Level NEG (NEG) Ur Amphetamine/Methamphetamine NEG (NEG) MDMA (Ecstasy) Screen NEG (NEG) Urine Benzodiazepines Screen NEG (NEG) Urine Cocaine Metabolite NEG (NEG) Urine Marijuana (THC) NEG (NEG) White Blood Count 7.51 K/uL (4.8-10.8) Red Blood Count 5.42 M/uL (4.7-6.1) Hemoglobin 16.1 g/dL (14.0-18.0) Hematocrit 46.5 % (42-52) Mean Corpuscular Volume 85.8 fL (80-100) Mean Corpuscular Hemoglobin 29.7 pg (25-34) Mean Corpuscular Hemoglobin Concent 34.6 g/dl (32-36) Platelet Count 286 K/uL (130-400) Mean Platelet Volume 10.3 fL (7.4-10.4) Neutrophils (%) (Auto) 58.5 % Lymphocytes (%) (Auto) 27.4 % Monocytes (%) (Auto) 13.0 % Eosinophils (%) (Auto) 0.5 % Basophils (%) (Auto) 0.5 % Neutrophils # (Auto) 4.38 K/uL (1.4-6.5) Lymphocytes # (Auto) 2.06 K/uL (1.2-3.4) Monocytes # (Auto) 0.98 K/uL (0.11-0.59) Eosinophils # (Auto) 0.04 K/uL (0-0.5) Basophils # (Auto) 0.04 K/uL (0-0.2) RDW Standard Deviation 42.5 fL (36.4-46.3) RDW Coefficient of Variation 13.6 % (11.5-14.5) Immature Granulocyte % (Auto) 0.1 % Immature Granulocyte # (Auto) 0.01 K/uL (0.00-0.02) Anion Gap 9.0 mmol/L (3-11) Est Creatinine Clear Calc Drug Dose 145.8 ml/min Estimated GFR () 134.7 Estimated GFR (Non- 116.2 BUN/Creatinine Ratio 11.2 (10-20) Calcium Level 9.5 mg/dl (8.5-10.1) Total Bilirubin 1.0 mg/dl (0.2-1) Aspartate Amino Transf (AST/SGOT) 21 U/L (15-37) Alanine Aminotransferase (ALT/SGPT) 36 U/L (12-78) Alkaline Phosphatase 75 U/L (45-117) Total Protein 8.4 gm/dl (6.4-8.2) Albumin 4.5 gm/dl (3.4-5.0) Globulin 3.9 gm/dl (2.5-4.0) Albumin/Globulin Ratio 1.2 (0.9-2) Salicylates Level < 1.7 mg/dl (2.8-20) Acetaminophen Level < 2 ug/ml (10-30) Ethyl Alcohol mg/dL < 3.0 mg/dl (0-3) Fasting Glucose 82 mg/dl (70-99) Triglycerides Level 102 mg/dl (0-150) Cholesterol Level 123 mg/dl (0-200) HDL Cholesterol 41 mg/dl LDL Cholesterol, Calculated 62 mg/dl VLDL Cholesterol, Calculated 20 mg/dl Cholesterol/HDL Ratio 3.0 Problem Qualifiers (1) Psychosis: Psychosis type: unspecified psychosis type Qualified Codes: F29 - Unspecified psychosis not due to a substance or known physiological condition (2) Altered mental status: Altered mental status type: disorientation Qualified Codes: R41.0 - Disorientation, unspecified
[2016-07-05] MEDS: RISPERIDONE ODT 1MG PO SCH (21:21)
[2016-07-06 06:49] VITALS: BP_SYST 121; BP_SYST 134; BP_DIAS 68; BP_DIAS 77; PULSE 71; PULSE 76; TEMP 36.8
--- NOTE | 2016-07-06 11:47 | Psychiatric Progress Notes ---
Progress Note Date of Service Jul 06, 2016. 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 He was admitted on a 302. Chief Complaint "yeah I still feel pretty slow". Subjective Patient was seen & assessed interval progress reviewed with nursing. Generally appears flat and non-spontaneous in conversation. He is "foggy" and had difficulty completing a Sudoku puzzle with staff. No agitation. No prn since . Denies muscle side effects. Review of Systems Psych: denies symptoms other than stated above Constitutional: sedated Cardiovascular: denied GI: denied Neurologic: cognitive slowing Remainder of 10 body systems also reviewed and denied other than noted above. Sleep Information Total Hours of Sleep: 7.25 Meal Information Percent of Breakfast Consumed: 100 Percent of Lunch Consumed: 50 Percent of Dinner Consumed: 100 Mental Status Exam During interview pt is: cooperative Appearance: appropriately dressed, appropriately groomed Eye contact is: fair Motor behavior is: steady gait & station, no abnormal motor movements Speech: normal in rate, rhythm & volume (but minimal) Affect: flat Mood is: other ("fine") Thought process: goal directed Thought content: reality based without delusions, other (paucity of content) Suicidal thought are: denied Homicidal thoughts are: denied Hallucinations: denies auditory, denies visual Cognition: attention grossly intact, language grossly intact Intelligence estimated to be: consistent with level of education Insight: impaired Judgement: impaired Impression Patient currently on 303. Mother reportedly still processing diagnosis. Risperdal was moved to but sedation and cognitive slowing persist. Plan (1) Psychosis 06/30/16 -Discussed risks, benefits and alternatives of Seroquel including metabolic syndrome including diabetes associated with medication and he is agreeable to a trial of medication to address psychosis. Patient is agreeable to initiating Seroquel at 50mg qAM and 100mg qbedtime. -will work on obtaining collateral history including family history and substance use history to attempt to further clarify diagnosis. -will place on q15 minute checks to monitor patient in private room given history of aggression towards roommates and destruction of his residence. 07/01 - Ddx includes primary thought disorder, psychotic mood disorder, effects of a substance (synthetics were not drawn on admission), delirium, and organic cause. Was admitted medically 06/03 after 2 days of AMS and then Kasandra found him on floor slow to respond, thought initially to be a question of concussion from boxing. His friends and family denied any substance abuse history, and he denied any head injury or actual boxing contact. Neuro was consulted and rec MRI of brain and EEG, which were normal. He had Lyme testing, ESR, and cardiac enzymes which were normal. AM cortisol was high (29.35), but total and free testosterone, renin, and aldosterone were normal. He was discharged 06/05 with diagnosis of Nyquil overdose, but it is not clear where this information came from, as no other mention of medication use or abuse found in the record. - Discontinue quetiapine and start risperidone M tab 1mg bid to target psychosis, as it is a more potent antipsychotic and there is a decreased risk of cheeking with the Mtab. - Get collateral information from roommates and parents. - Consider need to file for a 303 commitment. - Continue Haldol 5mg, lorazepam 1mg, and benztropine 1mg prn psychosis. - Met with mother for about 1 hour to review history and recent symptoms, current working diagnosis, and treatment recommendations. 07/02 - Ongoing psychosis, admitting to [facility], paranoia, ideas of reference, and thought broadcasting. Poorly able to further characterize or give detail when asked, suspect thought blocking. Increase risperidone to 1mg qam and 2mg qhs. 07/03 - Patient continues to appear extremely thought blocked, slowed, and confused. Will consolidate risperidone to 3 mg at bedtime for tomorrow to try to limit daytime sedation area he has agreed to attend groups and try to participate today, and will schedule a 303 hearing for tomorrow. If we are able to secure appropriate aftercare in the [place] area, he may be able to be discharged within the next week, but want to ensure that his psychosis is improving, which has been difficult to do given his thought blocking and limited ability to participate in the assessment process. 07/04 - 303 hearing held and granted. - Continue risperidone 3mg qhs. - Encourage patient to attend groups and participate, encourage communication about symptoms and thought process. - Patient has been in good behavioral control for the past few days, without aggressive behavior, so will discontinue private room. 07/05 - Continue current plan 07/06 --now that receiving therapeutic doses over course of hospitalization and psychosis improved, appears overmedicated with cognitive slowing (the latter could also be condition). Will decrease Risperdal to 2 mg this hs. (2) Altered mental status 06/29/16 -will provide ongoing reorientation and reality checks with patient -will attempt to identify any sources of substance use or other causes of altered mental status 07/01 -oriented to day, hospital, and unit, but not to year, date, season or floor. Doesn't remember how he came to the hospital or events last evening. -rule out delirium component. (3) Overuse of medication 06/30/16 - Will attempt to further clarify substance use such as Nyquil which he currently denies but has a history of overdosing on 3 weeks ago. 07/01 - Patient's mother does not think he has been abusing substances. She called staff after she found Adderall in his apartment, but said his roommates take it. 07/02 - Patient denies taking Adderall or any other substances. Discharge / Aftercare Planning Psychiatrist: Name: Dr Bar at [facility] Appointment Notes: pending Therapist: Name: Facundo Morton at [facility] Phone Number: [phone] Date of Appointment: Jul 11, 2016 Time of Appointment: 11:00 Appointment Notes: mom's recommendation Bolivar Gonzalez Visit Code E&M Code: 43588 Risk Factors Assessment Male: Yes : Yes /single/: No Health problems: No Mental Health Diagnoses: No Substance use disorders: Yes (possible Nyquil overdose 3 weeks ago) Previous psychiatric stay: No Protective Factors Assessment : No Responsible for young children: No Employed: No Stable relationships: No Supportive family: Yes Good rapport with provider: No Data Vital Signs Last 24 Hrs: Date Time Temp Pulse Resp B/P Pulse Ox O2 Delivery O2 Flow Rate FiO2 07/06/16 06:49 36.8 71 17 121/68 76 134/77 Meds Administered Last 24 Hrs: Meds Administered (Past 24Hrs) Medications (Trade) Dose Ordered Sig/Robert Route Start Time Stop Time Status Last Admin Dose Admin Risperidone (Risperdal M Tab) 3 mg HS PO 07/04/16 22:00 08/03/16 21:59 07/05/16 21:21 3 MG Problem Qualifiers (1) Psychosis: Psychosis type: unspecified psychosis type Qualified Codes: F29 - Unspecified psychosis not due to a substance or known physiological condition (2) Altered mental status: Altered mental status type: disorientation Qualified Codes: R41.0 - Disorientation, unspecified
[2016-07-06] MEDS ORDERED: RISPERIDONE ODT 1MG PO SCH (22:00)
[2016-07-07 06:46] VITALS: BP_SYST 117; BP_SYST 131; BP_DIAS 64; BP_DIAS 82; PULSE 80; TEMP 36.6
--- NOTE | 2016-07-07 09:26 | Discharge Instructions ---
Discharge Information Report Includes Report will include the: Discharge Instructions & Summary Admission Admission Date / Time: Jun 29, 2016 at 17:48 Reason for Admission: Psychosis Nos Discharge Discharge Diagnosis / Problem: unspecified psychotic disorder Condition at Discharge: Good Discharge Goals Goal(s): Improve function, Improve disease control Activity Recommendations Activity Limitations: resume your previous activity . Instructions / Follow-Up Instructions / Follow-Up . SPECIAL CARE INSTRUCTIONS: 1. Follow through with your scheduled aftercare appointments. If unable to keep an appointment, please call to reschedule. 2. Take your medication only as prescribed. Medication should not be changed or stopped without the approval of your doctor. In the event of worsening symptoms or concerns about side effects, contact your doctor immediately. 3. Utilize new healthy coping skills, anger management skills, and stress management skills learned during your hospitalization. Journal feelings and process them with a support person. Identify stressors or situations that may result in relapse, deterioration or inappropriate behaviors and develop a plan to deal with those issues. 4. If your coping skills are ineffective and you are in crisis, contact your outpatient providers for direction. If unable to reach your providers, please call the CAN HELP LINE AT or go to the closest Emergency Room. 5. Avoid alcohol and un-prescribed drugs. 6. You have been provided with the Mental Health Advance Directives Pamphlet for your review. AFTERCARE APPOINTMENTS: * Please call your insurance company prior to your scheduled appointment to confirm your aftercare providers are covered. Take your insurance information to your appointments. . Discharge / Aftercare Planning Primary Care Physician: Name: Nadine Mcdonald MD- KEIKO Rao [id number] Appointment Notes: mom planning to arrange appointment Psychiatrist: Name: Dr Bar at [facility] Appointment Notes: pending Therapist: Name Of Therapist: Facundo Morton at [facility] Phone Number: or [phone] Date of Appointment: Jul 11, 2016 Time of Appointment: 11:00 Appointment Comments: mom's recommendation Bolivar Gonzalez I Follow-Up Care Plan for Follow-Up Care: f the psychiatrist that your mother was able to identify is unable to see you within a few weeks of discharge, please see your PCP for a refill on medication as your condition is likely to return if medication is stopped abruptly. Emergency services and outpatient psychiatric care are also available through [facility]'s psychiatry department at [facility] by calling . . Current Hospital Diet Patient's current hospital diet: Regular Diet Discharge Diet Recommended Diet: Regular Diet Procedures Procedures Performed: No Pending Studies Pending Studies at Discharge: No Medical Emergencies . Who to Call and When: Medical Emergencies: For questions or emergencies related to your hospital stay, please contact the Inpatient Behavioral Health Unit at [phone]. A clinician oncology is on-call 04/11 for the Behavioral Health Unit for emergencies At any time you feel your situation is an emergency, you may also call 911 immediately. . Non-Emergent Contact Non-Emergency issues call your: Primary Care Provider, Psychiatrist, Therapist Contact Number: as above Advance Directives Existing Advance Directive: No Do You Have an Existing Mental: No Existing Living Will: No Existing Power of Pan Reclaim Processor: No Advance Directives Info Given: To Pt/S.O. Advance Directives Reason: Declines as Mental Health Visit and due to age. Discharge Summary Admission HPI Per the Admitting provider: Patient is minimally verbal and denies knowledge of why he has presented to hospital. He admits that he has 5 roommates who have moved out but he is not sure why they moved out. He admits that he was admitted here to [facility] a few weeks ago for a few days but is unsure why he was admitted. When questioned if it was related to taking Nyquil or Dextromethorphan he denies using this or any other drugs or alcohol. Describes his mood as happy. Denies excessive worrying. Denies any manic episodes in the past. Admits to only sleeping 4 to 5 hours per night for the past 2 to 3 weeks for no apparent reason but denies any other excessive behaviors. Appetite is good but he has lost 20lbs over the past few months which he attributes wanting to get into shape. 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 Denies any thoughts to harm himself or others. Denies access to guns. Denies any confrontations or aggressiveness towards roommates who have moved out due to fear for their safety from him. Denies auditory or visual hallucinations or paranoia. Per the emergency room record: The patient is a 21 year old male who presents to the Emergency Room with complaints of a sudden mental health evaluation that was noticed earlier today. The patient came to the ED via ambulance from home. Per the psych case checker, the patient lives with several roommates, but none of them are staying there because they are scared of him. One of the patient's roommates went to the apartment today to get stuff and when he got there the patient was there. The patient put all of his roommates stuff in garbage bags and was planning to throw it out. Per the psych case checker, the patient was also tearing apart the apartment when his roommate got there. The patient's roommate then called EMS. The psych case checker also reports that the patient does not have a mental health history. The psych case manger also reports that, according to the patient's roommate, the patient has been going to class and he is unaware of any drug or alcohol abuse. The patient's roommate also reported that the patient seems to be obsessed with drinking water and just started a new no carbohydrate diet. The patient's roommate adds that the patient seems to be a loner and just ruined the last friendship he had. The patient states that nothing is going on today and he is unsure of why he is here. The patient admits that he does not get along with his roommates, but he states that he is unsure of how long he has lived with them. He is also unsure of what his class year is or who the president is. The patient denies any pain, along with nausea and shortness of breath. The patient denies any significant medical problems and denies being to this hospital in the past. However, the patient was here about 1 month ago for altered mental status. He was admitted to the hospital and his altered mental status was attributed to NyQuil overuse. The patient denies any recent drug or alcohol use. 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 The patient states that his classes are not tough. Hospital Course (1) Psychosis 06/30/16 -Discussed risks, benefits and alternatives of Seroquel including metabolic syndrome including diabetes associated with medication and he is agreeable to a trial of medication to address psychosis. Patient is agreeable to initiating Seroquel at 50mg qAM and 100mg qbedtime. -will work on obtaining collateral history including family history and substance use history to attempt to further clarify diagnosis. -will place on q15 minute checks to monitor patient in private room given history of aggression towards roommates and destruction of his residence. 07/01 - Ddx includes primary thought disorder, psychotic mood disorder, effects of a substance (synthetics were not drawn on admission), delirium, and organic cause. Was admitted medically 06/03 after 2 days of AMS and then Kasandra found him on floor slow to respond, thought initially to be a question of concussion from boxing. His friends and family denied any substance abuse history, and he denied any head injury or actual boxing contact. Neuro was consulted and rec MRI of brain and EEG, which were normal. He had Lyme testing, ESR, and cardiac enzymes which were normal. AM cortisol was high (29.35), but total and free testosterone, renin, and aldosterone were normal. He was discharged 06/05 with diagnosis of Nyquil overdose, but it is not clear where this information came from, as no other mention of medication use or abuse found in the record. - Discontinue quetiapine and start risperidone M tab 1mg bid to target psychosis, as it is a more potent antipsychotic and there is a decreased risk of cheeking with the Mtab. - Get collateral information from roommates and parents. - Consider need to file for a 303 commitment. - Continue Haldol 5mg, lorazepam 1mg, and benztropine 1mg prn psychosis. - Met with mother for about 1 hour to review history and recent symptoms, current working diagnosis, and treatment recommendations. 07/02 - Ongoing psychosis, admitting to AV, paranoia, ideas of reference, and thought broadcasting. Poorly able to further characterize or give detail when asked, suspect thought blocking. Increase risperidone to 1mg qam and 2mg qhs. 07/03 - Patient continues to appear extremely thought blocked, slowed, and confused. Will consolidate risperidone to 3 mg at bedtime for tomorrow to try to limit daytime sedation area he has agreed to attend groups and try to participate today, and will schedule a 303 hearing for tomorrow. If we are able to secure appropriate aftercare in the [place] area, he may be able to be discharged within the next week, but want to ensure that his psychosis is improving, which has been difficult to do given his thought blocking and limited ability to participate in the assessment process. 07/04 - 303 hearing held and granted. - Continue risperidone 3mg qhs. - Encourage patient to attend groups and participate, encourage communication about symptoms and thought process. - Patient has been in good behavioral control for the past few days, without aggressive behavior, so will discontinue private room. 07/05 - Continue current plan 07/06 --now that receiving therapeutic doses over course of hospitalization and psychosis improved, appears overmedicated with cognitive slowing (the latter could also be condition). Will decrease Risperdal to 2 mg this hs. 07/07 improved on lower dose (less cognitive blunting), no abnormal motor movements, EPS or akathisia. AIMS=0 (2) Altered mental status 06/29/16 -will provide ongoing reorientation and reality checks with patient -will attempt to identify any sources of substance use or other causes of altered mental status 07/01 -oriented to day, hospital, and unit, but not to year, date, season or floor. Doesn't remember how he came to the hospital or events last evening. -rule out delirium component. (3) Overuse of medication 06/30/16 - Will attempt to further clarify substance use such as Nyquil which he currently denies but has a history of overdosing on 3 weeks ago. 07/01 - Patient's mother does not think he has been abusing substances. She called staff after she found Adderall in his apartment, but said his roommates take it. 07/02 - Patient denies taking Adderall or any other substances. Risk Factors Assessment Male: Yes : Yes /single/: No Health problems: No Mental Health Diagnoses: No Substance use disorders: Yes (possible Nyquil overdose 3 weeks ago) Previous psychiatric stay: No Protective Factors Assessment : No Responsible for young children: No Employed: No Stable relationships: No Supportive family: Yes Good rapport with provider: No Day of Discharge Assessment Bonifacio is more alert today and denies muscle stiffness. There is less delay in response. He was behaviorally appropriate on the unit yesterday and thoughts are organized, without evidence of paranoia, lu, HI or SI. His affect is less blunted today, spontaneous smiling as we talked about his return to [place] and his love of the [facility]. He expressed commitment to his outpatient treatment plan and medication regimen. His mother will be accompanying him back to [place] and remain involved on follow through on his follow-up appointments. He is significantly improved from baseline. Laboratory Test 06/29/16 13:48 06/29/16 13:50 06/29/16 15:30 07/02/16 04:30 POC Glucose 99 Urine Color YELLOW Urine Appearance CLEAR Urine pH 6.5 Urine Specific Lilly <= 1.005 Urine Protein NEG Urine Glucose (UA) NEG Urine Ketones NEG Urine Occult Blood NEG Urine Nitrite NEG Urine Bilirubin NEG Urine Urobilinogen NEG Urine Leukocyte Esterase NEG Urine Opiates Screen NEG Urine Methadone, Qualitative NEG Urine Barbiturates NEG Urine Phencyclidine (PCP) Level NEG Ur Amphetamine/Methamphetamine NEG MDMA (Ecstasy) Screen NEG Urine Benzodiazepines Screen NEG Urine Cocaine Metabolite NEG Urine Marijuana (THC) NEG White Blood Count 7.51 Red Blood Count 5.42 Hemoglobin 16.1 Hematocrit 46.5 Mean Corpuscular Volume 85.8 Mean Corpuscular Hemoglobin 29.7 Mean Corpuscular Hemoglobin Concent 34.6 Platelet Count 286 Mean Platelet Volume 10.3 Neutrophils (%) (Auto) 58.5 Lymphocytes (%) (Auto) 27.4 Monocytes (%) (Auto) 13.0 Eosinophils (%) (Auto) 0.5 Basophils (%) (Auto) 0.5 Neutrophils # (Auto) 4.38 Lymphocytes # (Auto) 2.06 Monocytes # (Auto) 0.98 Eosinophils # (Auto) 0.04 Basophils # (Auto) 0.04 RDW Standard Deviation 42.5 RDW Coefficient of Variation 13.6 Immature Granulocyte % (Auto) 0.1 Immature Granulocyte # (Auto) 0.01 Sodium Level 142 Potassium Level 3.9 Chloride Level 106 Carbon Dioxide Level 27 Anion Gap 9.0 Blood Urea Nitrogen 10 Creatinine 0.94 Est Creatinine Clear Calc Drug Dose 145.8 Estimated GFR () 134.7 Estimated GFR (Non- 116.2 BUN/Creatinine Ratio 11.2 Random Glucose 87 Calcium Level 9.5 Total Bilirubin 1.0 Aspartate Amino Transferase (AST) 21 Alanine Aminotransferase (ALT) 36 Alkaline Phosphatase 75 Total Protein 8.4 Albumin 4.5 Globulin 3.9 Albumin/Globulin Ratio 1.2 Salicylates Level < 1.7 Acetaminophen Level < 2 Ethyl Alcohol mg/dL < 3.0 Fasting Glucose 82 Triglycerides Level 102 Cholesterol Level 123 HDL Cholesterol 41 LDL Cholesterol, Calculated 62 VLDL Cholesterol, Calculated 20 Cholesterol/HDL Ratio 3.0 Total Time Total Time Spent (min): Greater than 30 minutes Total Time Included: examination of the patient Tobacco Cessation at Discharge Smoking Status: Former Smoker FDA approved Prescription: non-smoker Problem Qualifiers (1) Psychosis: Psychosis type: unspecified psychosis type Qualified Codes: F29 - Unspecified psychosis not due to a substance or known physiological condition (2) Altered mental status: Altered mental status type: disorientation Qualified Codes: R41.0 - Disorientation, unspecified
[2016-07-07] MEDS ORDERED: RISP2TAB21 PO (09:27)
== END 2016-07-07 11:13 | disposition home or self-care (01) | DRG 885 ==
LOC: ENRESERVTM → ENRESERVDT → EDBD 13:42 → C.EDA 13:44 → C.MHU 17:48
PROVIDERS: ADMIT Psychiatry & Neurology Psychiatry; ATTEND Psychiatry & Neurology Psychiatry
DX: F29 Unspecified psychosis not due to a substance or known physiological condition (principal)